=== PATIENT | male | born 1950 | race Caucasian/White ===

== ENCOUNTER 2022-03-19 11:22 | Outpatient (CLI) | payer MEDICARE, SELFPAY ==
--- NOTE | 2022-03-19 | ECG_ITS ---
Measurements Intervals [place] Rate: 62 P: 49 NV: 191 QRS: 34 QRSD: 107 T: 51 QT: 402 QTc: 409 Interpretive Statements SINUS RHYTHM EARLY PRECORDIAL R/S TRANSITION BASELINE WANDER- I, II, AVR, AVL, AVF BORDERLINE ECG NO PREVIOUS ECG AVAILABLE FOR COMPARISON Electronically Signed On 03-19-2022 12:52:32 CDT by Akshat Hall D.O.
[2022-03-19 13:16] LABS: NT Pro B Type Natriuretic Pept 82 pg/mL (5-100)
== END 2022-03-19 11:23 | disposition home or self-care (01) ==
LOC: ANHLAB 12:03
DX: R06.02 Shortness of breath (principal); R00.2 Palpitations
CPT/HCPCS: 36415; 83880; 93005

== ENCOUNTER 2024-11-18 03:28 | Emergency (ER) | payer MEDICARE, SELFPAY ==
[2024-11-18] VITALS (7 sets, daily range): BP systolic 107–138; BP diastolic 51–68; PULSE 56–81; RESP 15–19; TEMP 36.6; O2SAT 97–98
--- NOTE | ~2024-11-18 | XR_ITS ---
Portable chest x-ray Comparison: 01/01/2018 Clinical History: Chest pain Findings: Right-sided Mediport present. Stable left perihilar density extending to the right lower l obe, suggestive of treated disease/post treatment change. There is no definite acute abnormality in t he right lung. Cardiomediastinal silhouette is stable. Multilevel vertebroplasty noted in the spine. Impression: No definite acute abnormality. Probable post radiation change/treated disease in the left perihilar region extending to left lower l obe. Reviewed, dictated and finalized at location M. Impression: No definite acute abnormality. Probable post radiation change/treated disease in the left perihilar region ext ending to left lower lobe.
--- NOTE | ~2024-11-18 | CT_ITS ---
Non-contrast Head CT History: Confusion Technique: Axial non-contrast imaging of the brain was performed. Dose reduction technique was used on this scan by utilizing automated exposure control and iterative reconstruction technique. The dose -length product (DLP) was 681.00 mGy-cm. Findings: There is no evidence of intracranial hemorrhage, mass lesion, or acute infarct. 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 Brain parenchyma otherwise intact. The татьяна tricles and subarachnoid spaces are normal in size. The calvarium appears normal. The visualized pa ranasal sinuses and mastoid air cells are clear. Impression: No acute abnormality seen. 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 Reviewed, dictated and finalized at location . Impression: No acute abnormality seen. Focal chronic infarct or other encephalomalacia in the superior right frontal l obe.
--- NOTE | ~2024-11-18 | CT_ITS ---
Clinical Indication: Chest pain, lung cancer CT Scan of the Chest with Contrast: Technique: Contiguous sections were acquired throughout the chest after intravenous administration of 100 cc of Omnipaque 350. Dose reduction technique was used on this scan by utilizing automated expos ure control and iterative reconstruction technique. The dose-length product (DLP) was 360.40 mGy-cm. Findings: There is no evidence of any significant mediastinal, hilar or axillary lymphadenopathy. There is no f illing defect in the pulmonary arterial tree to suggest pulmonary embolus. There is no evidence of ao rtic dissection or aneurysm. There is minimal loculated left pleural effusion. No right pleural effusion. No pericardial effusion. There is somewhat bandlike consolidation in the medial left lung scanning from the upper lobes to the hilum into the medial portion lower lobe, with associated bronchiectatic change in the perihilar reg ion. This is most compatible with radiation change. There is biapical chronic interstitial change and mild emphysema. No suspicious pulmonary nodules identified. Images through the upper abdomen reveal no abnormalities. Prior vertebroplasty at T5, T6, T7, and L1. There is mild compression deformity of T12. Impression: No evidence of pulmonary embolus, aortic dissection, or aortic aneurysm. Post radiation changes in the central left lung, as detailed above. Biapical chronic interstitial change and mild emphysema. Minimal loculated left pleural effusion. Multilevel vertebroplasty in the spine, as detailed above. Additional mild T12 compression fracture. Reviewed, dictated and finalized at [facility]. Impression: No evidence of pulmonary embolus, aortic dissection, or aortic aneurysm. Post radiation changes in the central left lung, as detailed above. Biapical chronic interstitial change and mild emphysema. Minimal loculated left pleural effusion. Multilevel vertebroplasty in the spine, as detailed above. Additional mild T12 compression fracture.
--- NOTE | 2024-11-18 03:31 | ECG_ITS ---
Test Date: 2024-11-18 03:36:08 Measurements Intervals [place] Rate: 71 P: 60 ID: [id number] QRS: 15 QRSD: 105 T: 52 QT: 379 QTc: 414 Interpretive Statements SINUS RHYTHM LEFT ATRIAL ENLARGEMENT [-0.15mV P-WAVE IN V1/V2] No previous ECG available for comparison Electronically Signed On 11-18-2024 15:59:58 CDT by Skip Mays M.D.
--- OUTSIDE RECORDS SUMMARY | 2024-11-18 03:33 | XMS_ITS | Continuity of Care Document ---
Author Organization [facility] Address [id number] [place] [address] [address] [place] [address] Phone Care Team Providers Care Gift Officer Name Role Phone Tolentino OD, Joaquin Unavailable Unavailable Advance Directives Directive Yes / No Effective Date File Name No Information Encounters Encounter Description Practice Location Reason(s) For Visit Diagnoses Date Provider Providers Copied on Encounter [facility], [address], [place], [place], [id number], [place] tel:[phone] [facility] No Information Patric-2 [phone] Tolentino OD Joaquin. [address] , [address], [place], [address], [place]. tel:[phone] Family History Family Member Type Diagnosis Age At Onset No Information Payers Payer name Insurance type Covered libertarian ID Authoriza tion(s) No Information Social History Type Description Quantity Date Captured Comments Sex Male Smoking Status No Information Chief Complaint And Reason For Visit No Information Reason For Referral Reason For Referral No Information History Of Present Illness Encounter Date Complaint History Of Prese nt Illness No Information Functional Status Date Functional Assessmen t No Information Instructions Date Instruction Additional Infor mation No Information Assessments Type Assessment Date No Information Patient Care Teams Name Effective Dates (start - stop) Status Members No Information
--- OUTSIDE RECORDS SUMMARY | 2024-11-18 03:33 | XMS_ITS | Continuity of Care Document ---
Author Organization [facility] - Main Address [address] [address] Insurance Providers Payer Plan Claims Address Claims Phone Policy Number Group Number Relation Employer Guarantor Name Guarantor Guarantor Address Guarantor Phone [employer] [address], [place] [address] tel:[phone] Self Don Logan [address] [place] [id number] [employer] [address], [place] [address] tel:[phone] Self Don Logan [address] [place] [id number] [employer] [address], [place] [address] tel:[phone] Self Don Logan [address] [place] [id number] Problems Unknown Problems Results No Results Allergies, adverse reactions, alerts No known allergies and adverse reactions Medications No administered medications reported Vital Signs No vital signs reported Social History No smoking Hx information available
--- OUTSIDE RECORDS SUMMARY | 2024-11-18 03:33 | XMS_ITS | Referral Summary ---
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 (Primary Dx); Major depressive disorder, recurrent episode, in partial remission; ADHD (attention deficit hyperactivity disorder), inattentive type; Memory loss 10/04/2024 Documentation [facility] Department of Psychiatry [address] [facility] [address] [place] [phone] Ene Villela, MACKENZIE 09/29/24 no show (09/29/24 no show letter sent both by [facility] and [employer] (1st offense return)) 09/22/2024 10:30 AM CDT Telemedicine [facility] [address] [facility] 6th Floor [address] [place] [address] Sarahi Davidson NP Memory impairment (Primary Dx) 09/06/2024 10:30 AM MANAGER OF FINANCE Telemedicine [facility] Department of Psychiatry [address] [facility] [address] [place] [phone] Shannan Munoz NP CA (generalized anxiety disorder) (Primary Dx); Major depressive disorder, recurrent episode, in partial remission 09/03/2024 Results Follow-Up [facility] Gastroenterology [address] [facility] 12th [place] [address] [place] [address] Magaly Hamilton MD 09/02/2024 11:20 AM MANAGER OF FINANCE Imaging Exam [facility] Ophthalmology [address] [facility] 6th [place] [phone] 09/02/2024 10:45 AM MANAGER OF FINANCE Office Visit [facility] Ophthalmology [address] [facility] 6th [facility] [place] [phone] Danisha Barnard, DAMARIS Visual disturbance (Primary Dx); Visual disturbance, subjective; Vertical strabismus of right eye; Vitreous syneresis of both eyes; Pseudophakia of both eyes 2024 9:17 AM MANAGER OF FINANCE Anesthesia Event [facility] Digestive [facility] [place] [address] [facility] [address] [place] [address] Sierra Babin MD Bisch, Abby Michelle, HOLA 2024 9:15 AM MANAGER OF FINANCE - 2024 10:15 AM MANAGER OF FINANCE Surgery [facility] Disease [address] [place] [address] Magaly Hamilton MD COLON REMOVAL SNARE 2024 7:49 AM MANAGER OF FINANCE - 2024 10:48 AM MANAGER OF FINANCE Hospital Encounter [facility] [address] [address] Magaly Hamilton MD Screening for colon cancer; Polyp of colon Discharge Disposition: Discharge to home or self care 08/24/2024 10:30 AM MANAGER OF FINANCE Office Visit [facility] Primary Care at [address] [phone] Brandi Arevalo NP Chest pain, unspecified type (Primary Dx); Hypothyroidism, unspecified type; Mild episode of recurrent major depressive disorder; Anxiety; Centrilobular emphysema (HCC); Pure hypercholesterolemia; 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) (HCC); 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) 08/24/2024 9:45 AM MANAGER OF FINANCE - 08/24/2024 11:59 PM MANAGER OF FINANCE Hospital Encounter [address] [address] Pure hypercholesterolemia; Hypothyroidism, unspecified type Discharge Disposition: Discharge to home or self care 08/24/2024 9:45 AM MANAGER OF FINANCE Lab [facility] Outpatient Lab at [address] [phone] Hypothyroidism (Primary Dx) 08/24/2024 Results Follow-Up [facility] Primary Care at [address] [phone] Brandi Arevalo NP from Last 3 Months Immunizations Immunization Administration Dates Next Due COVID-19 mRNA (Xenome) 0.3 m L (30 mcg) vaccine (12 years and up) 10/02/2023 Influenza, Quad, Adjuvantate d, Intramuscular 04/05/2021 Influenza, Quadrivalent, Hig h Dose, Preservative Free, Intrr 04/05/2022,04/06/2020 Influenza, Quadrivalent, Spl it, Intramuscular 04/06/2018 Influenza, Quadrivalent, Spl it, Preservative Free, Intramuscular 04/22/2014 Influenza, Trivalent, High D ose, Split, Preservative Free, Intramuscular 04/20/2024 Influenza, Trivalent, Preser vative Free, Intramuscular 05/07/2017,05/07/2016,04/16/2016,04/27 Influenza, Unspecified 03/25/2023,2020,04/12/2019,04/03 Pfizer SARS-CoV-2 Monovalent Vaccination (12+ Yrs) PURPLE 02/21/2021,09/08/2020,08/11/2020 Pfizer SARS-CoV-2 Monovalent Vaccination (5-11 Yrs) 08/20/2021 Pfizer Sars-Cov-2 Bivalent V accination (12+ YRS) 04/20/2024,03/14/2022 Pneumococcal Conjugate PCV 13 04/19/2019 Pneumococcal Polysaccharide PPV23 10/02/2023, Tdap 04/12/2019 ZOSTER Recombinant 07/08/2019,04/19/2019 Surgical History Surgery Date Site/Laterality Comments US GUIDED LUNG BIOPSY 03/02/2016 N/A PROSTATECTOMY KYPHOPLASTY LUMBAR 12/19/2017 N/A KYPHOPLASTY THORACIC 09/15/2018 N/A KYPHOPLASTY THORACIC 03/05/2019 N/A CATARACT EXTRACTION PROSTATE SURGERY UPPER GASTROINTESTINAL ENDOSCOPY COLONOSCOPY WISDOM TOOTH EXTRACTION IMPLANT PORTACATH PLACEMENT KYPHOPLASTY THORACIC 03/15/2024 N/A Medical History Medical History Date Comments Blood clot associated with v ein wall inflammation 2015 bilateral leg SOB (shortness of breath) on exertion Depression Cancer (HCC) lung and brain a nd prostate Thyroid disease Secondary malignant neoplasm of brain (HCC) 02/20/2016 Primary adenocarcinoma of up per lobe of left lung (HCC) 12/02/2017 Personal history of radiatio n therapy 03/02/2018 Anxiety Anemia Colon polyp GERD (gastroesophageal reflu x disease) history, not current Dysphagia Hypothyroidism Pseudophakia of both eyes Hard to intubate Awareness under anesthesia Sleep apnea Hyperlipidemia Emphysema of lung (HCC) History of transfusion 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 Flor HL (hearing loss) Dizziness Tinnitus TMJ dysfunction Hypertension Had but it is mosttl y over since 2017 Alcohol abuse Over 30 years ago Osteoporosis Cataract Removed in 2003 Heart disease I have some notation s on my last ct about my aorta Nausea 03/30/2024 Suicidal ideation 08/14/2021 Diverticulosis 11/02/2020 Family History Medical History Relation Name Comments Heart disease Brother Alcohol abuse Father Irving Diabetes Father Irving Heart disease Father Irving Heart failure Father Irving Obesity Father Irving Prostate cancer Maternal Grandfather Breast cancer Mother Berenice Depression Mother Berenice Drug abuse Mother Berenice overdose Cancer Sister Robert Endometrial cancer Sister Robert Broken bones Neg Hx Colon cancer Neg Hx Hip fracture Neg Hx Osteoporosis Neg Hx Scoliosis Neg Hx Relation Name Status Comments Brother Father Irving Maternal Grandfather Mother Berenice Sister Robert Social History Tobacco Use Types Packs/Day Years Used Date Smoking Tobacco: Former Cigarettes 3 30 1 966 - 1995 Smokeless Tobacco: Never Tobacco Cessation:Counseling Given: Not Answered Alcohol Use Standard Drinks/Week Comments Yes 3 (1 standard drink = 0.6 oz pur e alcohol) AUDIT-C Answer Date Recorded Q1: How often do you have a drink containing alcohol? Never 2024 Q2: How many drinks containi ng alcohol do you have on a typical day when you are drinking? Patient does not drink Q3: How often do you have si x or more drinks on one occasion? Never 2024 PHQ-2 Answer Date Recorded PHQ-2 Total Score (If total score is 3 or more points, staff should administer the PHQ-9) 4 05/13/2024 Hunger Vital Sign Answer Date Recorded Within the past 12 months, y ou worried that your food would run out before you got the money to buy more. Never true 06/23/20 24 Within the past 12 months, t he food you bought just didn't last and you didn't have money to get more. Never true 06/23/2024 PHQ-9 Answer Date Recorded PHQ-9 Total Score 11 05/13/2024 Personal Safety Answer Date Recorded Have you ever been in or are you currently in a harmful physical or emotional relationship or is someone making you feel afraid or unsafe? Denies 06/23/2024 Sex and Gender Information Value Date Recorded Sex Assigned at Not on file Legal Sex Male 12:11 PM MANAGER OF FINANCE Gender Identity Male 11/21/2022 6:52 PM CDT Sexual Orientation Not on file Obstetrics History Last Filed Vital Signs Vital Sign Reading Time Taken Comments Blood Pressure 118/62 11/16/2024 11:56 AM CDT Pulse 57 11/16/2024 11:56 AM CDT Temperature 36.7 C (98 F) 10/11/2024 1:33 PM CDT Respiratory Rate 22 2024 10:35 AM MANAGER OF FINANCE Oxygen Saturation 95% 11/09/2024 11:11 AM CDT Inhaled Oxygen Concentration - - Weight 86.2 kg (190 lb) 11/16/2024 11:56 AM CDT Height 182.9 cm (6') 11/16/2024 11:56 AM CDT Body Mass Index 25.77 11/16/2024 11:56 AM CDT Plan of Treatment Scheduled Procedures Name Priority Associated Diagnoses Date/Ti me COLONOSCOPY Open Access Colon cancer screening COLONOSCOPY Epigastric pain ESOPHAGOGASTRODUODENOSCOPY History of abdominal pain Health Maintenance Due Date Last Done Comments Hepatitis B Screening 1968 Covid-19 Vaccine (2023-2 5 season) 2024 04/20/2024, 10/02/2023, 03/14/2022, Additional history exists Well Visit 65+ 10/26/2024 10/27/2023, 09/2022, 08/21/2021, Additional history exists Depression Screening 05/13/2025 05/13/2024, 05/13/2024, 10/27/2023, Additional history exists Fall Risk Assessment 05/13/2025 05/13/2024, 03/15/2024, 10/27/2023, Additional history exists Colon Cancer Screening-Colonoscopy 2029 2024, 12/23/2023, 12/19/2020, Additional history exists DTaP/Tdap/Td Vaccine (3 - Td or Tdap) 10/05/2034 10/05/2024, 04/12/2019 Hepatitis C Screening Completed 06/26/2017 Zoster Vaccine Completed 07/08/2019, 04/19/2019 Prostate Cancer Screening-PSA Discontinued , 08/21/2021, 05/03/2019 Pneumococcal vaccine 65+ Completed 024, 04/19/2019, 06/02/2018 Abdominal Aortic Aneurysm (A AA) Screen Completed 04/15/2024, 07/12/2022, 08/14/2021, Additional history exists Influenza Vaccine Completed 04/20/2024, , 04/05/2022, Additional history exists Colon Cancer Screening-CT Colonography Discontinued 2024, 12/23/2023, 12/19/2020, Additional history exists Colon Cancer Screening-DNA Stool Discontinued 2024, 12/23/2023, 12/19/2020, Additional history exists Colon Cancer Screening-FIT Discontinued 08/25, 12/23/2023, 12/19/2020, Additional history exists Colon Cancer Screening-Sigmoidoscopy Discontinued 2024, 12/23/2023, 12/19/2020, Additional history exists Medical Devices Implanted Type Area Activities Specialist Device Identifier Shelf Expiration Date Model / Serial / Lot Vascular Access Power Port Chest Wall Auctions by [employer] 2002 Stabilit First Kit Fracture - [id number] Implanted:Qty: 1 on 12/19/2017 at [facility] [employer] 10/05/20192002 / / [id number] Auctions by Wallace [id number] - [id number] Implanted:Qty: 1 on 09/15/2018 at [facility] [employer] 06/05/2020 [id number] / / [id number] Procedures Procedure Name Priority Date/Time Associated Diagnosis Comments SANTOS VISUAL FIELD - OU - BOTH EYES Routine 09/02/2024 11:40 AM MANAGER OF FINANCE Visual disturbance Visual disturbance, subjective SURGICAL PATHOLOGY Routine 2024 9:53 AM MANAGER OF FINANCE Screening for colon cancer Polyp of colon COLONOSCOPY 2024 9:34 AM MANAGER OF FINANCE EGD 2024 9:23 AM MANAGER OF FINANCE ESOPHAGOGASTRODUODENOSCOPY 08/25 9:18 AM MANAGER OF FINANCE Screening for colon cancer Polyp of colon COLON REMOVAL SNARE 2024 9:18 AM MANAGER OF FINANCE Screening for colon cancer Polyp of colon ECG 12-LEAD Routine 08/24/2024 3:31 PM MANAGER OF FINANCE Chest pain, unspecified type EGFR Routine 08/24/2024 9:45 AM MANAGER OF FINANCE Pure hypercholesterolemia DIFFERENTIAL AUTO Routine 08/24/2024 9:45 AM MANAGER OF FINANCE Pure hypercholesterolemia THYROID FUNCTION CASCADE Routine 025 9:45 AM MANAGER OF FINANCE Hypothyroidism, unspecified type LIPID PANEL Routine 08/24/2024 9:45 AM MANAGER OF FINANCE Pure hypercholesterolemia CBC WITH AUTO DIFFERENTIAL Routine 08/24 9:45 AM MANAGER OF FINANCE Pure hypercholesterolemia COMPREHENSIVE METABOLIC PANEL Routine 9:45 AM MANAGER OF FINANCE Pure hypercholesterolemia CT CHEST ABDOMEN W CONTRAST Schedule Routine, Read Routine (OP Routine) 04/15/2024 4:12 PM CDT 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) 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) (HCC) PSA SCREEN Routine 10/07/2022 12:46 PM CDT Preventative health care HEPATITIS C ANTIBODY STAT 06/26/2017 7:23 AM MANAGER OF FINANCE
--- OUTSIDE RECORDS SUMMARY | 2024-11-18 03:34 | XMS_ITS ---
Author Organization [facility] Address [address] [place] [address] Care Team Providers Care Fruit Cutter Name Role Phone Michelle Gutierrez NP Unavailable Damaris Felix MD Unavailable Kamari Arora NP Unavailable Katie Roach Unavailable [phone] Brandi Arevalo NP Primary Care Provider Shannan Munoz NP Unavailable Active Problems Problem Noted Date Diagnosed Date Vitreous syneresis of both eyes 09/05/2024 Assessment & Plan (09/05/2024 1:03 PM HEALTHCARE ACCOUNT MANAGER): No retinal detachment (RD), pt ed. Monitor. S/sx retinal detachment (RD) reviewed. Chest pain 08/24/2024 Assessment & Plan (08/24/2024 3:33 PM HEALTHCARE ACCOUNT MANAGER): Attributed to anxiety. EKG shows NSR, no [...] 01/13/2023 Assessment & Plan (08/24/2024 8:54 AM HEALTHCARE ACCOUNT MANAGER): Recheck labs Pharmacotherapy as ordered. Continue atorvastatin Assessment & Plan (05/13/2024 3:28 PM HEALTHCARE ACCOUNT MANAGER): Lipid abnormalities are stable. Pharmacotherapy as ordered. [...] 06/19/2022 Assessment & Plan (09/05/2024 1:03 PM HEALTHCARE ACCOUNT MANAGER): Patient was educated on the intraocular lens (IOL) status. Follow. Assessment & Plan (05/20/2024 4:24 PM HEALTHCARE ACCOUNT MANAGER): Declined DFE Release updated glasses Rx Assessment & Plan (06/18/2023 1:56 PM HEALTHCARE ACCOUNT MANAGER): Central, clear, monitor Assessment & Plan (06/19/2022 3:36 PM HEALTHCARE ACCOUNT MANAGER): Central, clear. Monitor. Vertical strabismus of right eye 06/19/2022 Assessment & Plan (09/05/2024 1:03 PM HEALTHCARE ACCOUNT MANAGER): Slight adjustment to prism - release updated Rx Assessment & Plan (05/20/2024 4:24 PM HEALTHCARE ACCOUNT MANAGER): Slight change to prism Rx Assessment & Plan (06/18/2023 1:55 PM HEALTHCARE ACCOUNT MANAGER): Largely stable RHT that is comitant, 1pd increase improves subjective symptoms in exam. Will update specs as desired. Due to mild eyestrain/pain and feeling around left scientologist, will order ESR/CRP. Low likelihood for GCA based off symptoms, and no swelling of discs. If normal, will update specs and call/RTC with any new/worsening or persistent symptoms Assessment & Plan (06/19/2022 3:41 PM HEALTHCARE ACCOUNT MANAGER): Largely stable findings over current spec Rx [...] disease) Assessment & Plan (08/24/2024 8:55 AM HEALTHCARE ACCOUNT MANAGER): Managed by pulm. Continue albuterol hfa, anoro [...] 04/20/2020 Assessment & Plan (08/21/2021 8:25 PM HEALTHCARE ACCOUNT MANAGER): -present for 18 months after noise exposure [...] Staging:Clinical:Stage IV(pM1c) - Signed by Michelle Gutierrez WEATHER ANALYST on 06/03/2018 Assessment & Plan (08/24/2024 8:52 AM HEALTHCARE ACCOUNT MANAGER): Stable. On surveillance. Continues to follow-up with oncology every 6 months Assessment & Plan (05/13/2024 3:24 PM HEALTHCARE ACCOUNT MANAGER): Stable. On surveillance. Continues to follow-up with oncology every 6 months Anxiety 07/23/2016 Assessment & Plan (08/24/2024 8:57 AM HEALTHCARE ACCOUNT MANAGER): Managed by Psych. Mood is well controlled. Continue lexapro remeron, Assessment & Plan (04/06/2024 11:12 AM [...] needed. Assessment & Plan (08/14/2021 7:30 PM HEALTHCARE ACCOUNT MANAGER): At home, he is on Klonopin 0.5 mg daily as needed. - Resume home meds MDD (major depressive disorder) 07/23/2016 Assessment & Plan (08/24/2024 8:57 AM HEALTHCARE ACCOUNT MANAGER): Managed by Psych. Mood is well controlled. [...] psychiatry. Assessment & Plan (08/15/2021 4:14 PM HEALTHCARE ACCOUNT MANAGER): Will resume home meds, trazodone and Mirtazapine. Patient endorsed having suicidal idea for one day due to severe headache [facility] inpatient recommedned by primary oncology: consulted 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) 02/20/2016 Assessment & Plan (08/24/2024 8:52 AM HEALTHCARE ACCOUNT MANAGER): Stable, on surveillance. Last scan August 2024 Assessment & Plan (05/13/2024 3:24 PM HEALTHCARE ACCOUNT MANAGER): Stable, on surveillance Assessment & Plan (08/14/2021 7:31 PM HEALTHCARE ACCOUNT MANAGER): S/P gamma knife radiosurgery in 2015, has had sever MRI with no new lesions. - Medical oncology consult Sleep apnea 03/04/2013 Malignant neoplasm of prostate 03/04/2013 Hypothyroidism 03/04/2013 Assessment & Plan (08/24/2024 8:56 AM HEALTHCARE ACCOUNT MANAGER): Euthyroid. Continue levothyroxine. Recheck labs Assessment & Plan (05/13/2024 3:24 PM HEALTHCARE ACCOUNT MANAGER): Euthyroid. Continue levothyroxine. Follow-up 3-4 months for physical Assessment & Plan (10/27/2023 10:21 AM CDT): Stable well controlled on current regimen, will send in refills as needed Assessment & Plan (01/14/2023 8:39 AM CDT): Stable well controlled on current regimen, will send in refills as needed Assessment & Plan (08/21/2021 8:24 PM HEALTHCARE ACCOUNT MANAGER): - will check TSH Assessment & Plan (08/14/2021 7:30 PM HEALTHCARE ACCOUNT MANAGER): Resumed home Synthroid 75 mcg. 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 Other Current Plans Zoledronic Acid (Reclast) Infusion & Venous Sampling from [facility]* Plan Start Date: 06/23/2024 Plan Provider:Eleni Ramon MD Linked Problems Compression fracture of thor acic vertebra with routine healing, unspecified thoracic vertebral level, subsequent encounterOsteoporosis, unspecified osteoporosis type, unspecified pathological fracture presence Treatment Medications No medications scheduled. Past Treatment and Therapy Plans No past plan information found. Radiation Treatments * Course C2 L HILUM 2017 07/02/2017 - 07/15/2017 Treatment Period Energy Fraction Dose Fractions Total Dose Plans Planned LT LUNG 07/02/2017 - 07/15/2017 300 10 / 3,000 Reference Points Delivered LT HILUM_DPV 07/02/2017 - 07/15/2017 3,000 Lifetime Dose Tracking * Chemical Lifetime Dose Automatic Entry Manual Entr y Fluoro Time 10.038 minutes 10.038 minutes 0 minutes Air kerma at the reference point (Ka,r) 94.24 mGy 9 4.24 mGy 0 mGy DLP 11,043 mGycm 11,043 mGycm 0 mGycm Resolved Problems Problem Noted Date Diagnosed Date [...] 08/14/2021 Assessment & Plan (08/17/2021 10:43 AM HEALTHCARE ACCOUNT MANAGER): Headache etiology is unclear. Goal of admission [...] 05/13/2024 Assessment & Plan (06/14/2021 8:46 AM HEALTHCARE ACCOUNT MANAGER): There is a 1 to 2 mm [...] 11/24/201801/2024 Assessment & Plan (08/14/2021 7:33 PM HEALTHCARE ACCOUNT MANAGER): CT chest in the ED showed stable [...]
--- OUTSIDE RECORDS SUMMARY | 2024-11-18 03:34 | XMS_ITS | Encounter Summary ---
Author Organization [facility] Healthcare Address [address] [place] [address] Care Team Providers Care Paving Foreman Name Role Phone Michelle Gutierrez BROKE BEATER Unavailable Damaris Felix MD Unavailable Martha Winston MD Primary Care Provider [phone] Kamari Arora NP Unavailable Katie Roach Unavailable [phone] Nishant Alanis MD Unavailable Joel Boo MD Primary Care Provider + Brandi Arevalo NP Primary Care Provider [phone] Shannan Munoz NP Unavailable Encounter Details Date Type Department Care Team (Late st Contact Info) Description 12/26/2020 Telephone [facility] Radiology [address] [place] [address] Martha Winston MD [address] [facility] DR Rachel GARCIA [address] [place] [id number] Social History Tobacco Use Types Packs/Day Years Used Date Smoking Tobacco: Former Cigarettes 3 30 1 966 - 1995 Smokeless Tobacco: Never Alcohol Use Standard Drinks/Week Comments Yes 3 (1 standard drink = 0.6 oz pur e alcohol) AUDIT-C Answer Date Recorded Q1: How often do you have a drink containing alc ohol? 2-3 times a week 12/19/2020 Q2: How many drinks containi ng alcohol do you have on a typical day when you are drinking? 1 or 2 12/19/2020 Q3: How often do you have si x or more drinks on one occasion? Never 12/19/2020 PHQ-2 Answer Date Recorded PHQ-2 Total Score (If total score is 3 or more points, staff should administer the PHQ-9) 2 04/20/2020 Sex and Gender Information Value Date Recorded Sex Assigned at Not on file Legal Sex Male 12:11 PM COOKER SULFATE Gender Identity Male 11/21/2022 6:52 PM CDT Sexual Orientation Not on file documented as of this encounter Plan of Treatment Scheduled Procedures Name Priority Associated Diagnoses Date/Ti ak COLONOSCOPY Open Access Colon cancer screening COLONOSCOPY Epigastric pain ESOPHAGOGASTRODUODENOSCOPY History of abdominal pain documented as of this encounter Visit Diagnoses Not on filedocumented in this encounter Care Teams Paving Foreman Relationship Specialty Start Date End Date Martha Winston MD [address] [place], [place] [address]NIKKI GARCIA [address] [place] [address] PCP - General Internal Medicine 06/19/20 11/03/22 Joel Boo MD [address] [place], [place] [address]NIKKI GARCIA [address] [place] [address] PCP - General Internal Medicine 11/04/22 05/12/24 Brandi rAevalo NP [address] [place], [place] [address]NIKKI GARCIA [address] [place] [address] PCP - General Family Medicine 05/13/24 Michelle Gutierrez NP Nurse Practitioner Radiation Oncology 12/23/17 Damaris eFlix MD Referring Physician Medical Oncology 12/23/17 Kamari Arora NP [facility]0 [facility] [address] Ramos RADHA [address] [place] [address] Nurse Practitioner Neurosurgery 08/18/20 Katie Roach Au.D. [address] [facility] [address] [place] [address] Welding Pantograph Operator Audiology 08/18/20 Nishant Alanis MD 49[address] [facility] [address] [place] [address] Consulting Physician Otolaryngology 08/18/20 08/18/24 Shannan Munoz NP 1 [facility] [address] [place] [address] Nurse Practitioner Nurse Practitioner 05/13/24 documented as of this encounter
--- OUTSIDE RECORDS SUMMARY | 2024-11-18 03:34 | XMS_ITS | Encounter Summary ---
Author Organization [facility] Address [address] [place] [address] Care Team Providers Care Chorus Dancer Name Role Phone Ricky Rodriguez MD Primary Care Provider Michelle Gutierrez SR VICE PRESIDENT Unavailable Damaris Felix MD Unavailable [facility], Ed Orellana MD Primary Care P rovider Ricky Rodriguez MD Primary Care Provider Martha Winston MD Primary Care Provider [phone] Martha Winston MD Primary Care Provider [phone] Martha Winston MD Primary Care Provider [phone] Kamari Arora SR VICE PRESIDENT Unavailable Katie Roach Unavailable [phone] Nishant Alanis MD Unavailable [phone] Joel Boo MD Primary Care Provider + Brandi Arevalo NP Primary Care Provider [phone] Shannan Munoz SR VICE PRESIDENT Unavailable Encounter Details Date Type Department Care Team (Late st Contact Info) Description 03/15/2019 Telephone [facility] Advanced Medicine Radiation Oncology [address] [place] [address] Maci Mccormick RN Social History Tobacco Use Types Packs/Day Years Used Date Smoking Tobacco: Former Cigarettes Smokeless Tobacco: Never Alcohol Use Standard Drinks/Week Comments Yes 3 (1 standard drink = 0.6 oz pur e alcohol) Sex and Gender Information Value Date Recorded Sex Assigned at Not on file 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, Ed Orellana MD [address] [place] [address] PCP - General 08/16/19 02/07/20 Ricky Rodriguez MD [address] [facility] [address] [place] [address] PCP - General Internal Medicine 02/08/20 02/10/20 Martha Winston MD [address] [place], [place] [address]NIKKI GARCIA [address] [place] [address] PCP - General Internal Medicine 04/20/20 06/18/20 Martha Winston MD [address] [place] [address] ADY GARCIA [address] [place] [address] PCP - General Internal Medicine 02/11/20 04/19/20 Martha Winston MD [address] [place], [place] [address]NIKKI GARCIA [address] [place] [address] PCP - General Internal Medicine 06/19/20 11/03/22 Joel Boo MD [address] [place], [place] [address]NIKKI GARCIA [address] [place] [address] PCP - General Internal Medicine 11/04/22 05/12/24 Brandi Arevalo NP [address] [place], [place] [address]NIKKI GARCIA [address] [place] [address] PCP - General Family Medicine 05/13/24 Michelle Gutierrez, LETICIA Nurse Practitioner Radiation Oncology 12/23/17 Damaris Felix MD Referring Physician Medical Oncology 12/23/17 Kamari Arora NP [address] [place] [address] DR Rachel GARCIA [address] [place] [address] Nurse Practitioner Neurosurgery 08/18/20 Katie Roach Au.D. [address] [address] Blindstitch Machine Operator Audiology 08/18/20 Nishant Alanis MD [address] [facility] [address] [place] [address] Consulting Physician Otolaryngology 08/18/20 08/18/24 Shannan Munoz NP [address] [place] [address] [place] [address] Nurse Practitioner Nurse Practitioner 05/13/24 documented as of this encounter
--- OUTSIDE RECORDS SUMMARY | 2024-11-18 03:34 | XMS_ITS | Encounter Summary ---
Author Organization [facility] Healthcare Address [address] [place] [address] Care Team Providers Care Pool Player Name Role Phone Michelle Gutierrez NP Unavailable Damaris Felix MD Unavailable Martha Winston MD Primary Care Provider [phone] Martha Winston MD Primary Care Provider [phone] Martha Winston MD Primary Care Provider [phone] Kamari Arora NP Unavailable Katie Roach Unavailable [phone] Nishant Alanis MD Unavailable [phone] Joel Boo MD Primary Care Provider + Brandi Arevalo NP Primary Care Provider Shannan Munoz NP Unavailable Encounter Details Date Type Department Care Team (Late st Contact Info) Description 02/16/2020 Telephone [facility]iology [facility] [address] [place] [address] Kamari Arora NP [address] [address] Social History Tobacco Use Types Packs/Day Years Used Date Smoking Tobacco: Former Cigarettes 3 30 1 966 - 1995 Smokeless Tobacco: Never Alcohol Use Standard Drinks/Week Comments Yes 3 (1 standard drink = 0.6 oz pur e alcohol) AUDIT-C Answer Date Recorded Frequency of Alcohol Consumption 2-3 times a wee k 04/12/2019 Average Number of Drinks 1 or 2 019 Frequency of Binge Drinking Not on file 01/2019 PHQ-2 Answer Date Recorded PHQ-2 Score 0 04/12/2019 Sex and Gender Information Value Date Recorded Sex Assigned at Not on file 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 Gender Identity Male 11/21/2022 6:52 PM CDT Sexual Orientation Not on file documented as of this encounter Plan of Treatment Scheduled Procedures Name Priority Associated Diagnoses Date/Ti me COLONOSCOPY Open Access Colon cancer screening COLONOSCOPY Epigastric pain ESOPHAGOGASTRODUODENOSCOPY History of abdominal pain documented as of this encounter Visit Diagnoses Not on filedocumented in this encounter Care Teams Pool Player Relationship Specialty Start Date End Date Martha Winston MD [address] [place], [place] [address]SIVA GARCIA [address] [place] [address] PCP - General Internal Medicine 04/20/20 06/18/20 Martha Winston MD [address] [place], [place] [address]SIVA GARCIA [address] [place] [address] PCP - General Internal Medicine 02/11/20 04/19/20 Martha Winston MD [address] [place], [place] [address]ISVA GARCIA [address] [place] [address] PCP - General Internal Medicine 06/19/20 11/03/22 Joel Boo MD [address] [place], [place] [address]SIVA GARCIA [address] [place] [address] PCP - General Internal Medicine 11/04/22 05/12/24 Brandi Arevalo NP [facility] ANA GARCIA [address] [place] [address] PCP - General Family Medicine 05/13/24 Michelle Gutierrez, LETICIA Nurse Practitioner Radiation Oncology 12/23/17 Damaris Felix MD Referring Physician Medical Oncology 12/23/17 Kamari Arora NP [address] [place] [address] DR Ramos RADHA [address] [place] [address] Nurse Practitioner Neurosurgery 08/18/20 Katie Roach Au.D. 49[address] [facility] [address] [place] [address] Ceo Audiology 08/18/20 Nishant Alanis MD [address] [facility] [address] [place] [address] Consulting Physician Otolaryngology 08/18/20 08/18/24 Shannan Munoz NP 1 [facility] [address] [place] [address] Nurse Practitioner Nurse Practitioner 05/13/24 documented as of this encounter
--- OUTSIDE RECORDS SUMMARY | 2024-11-18 03:34 | XMS_ITS | Encounter Summary ---
Author Organization [facility] Address [address] [place] [address] Phone Care Team Providers Care Executive Secretary Name Role Phone Michelle Gutierrez WILDLIFE REFUGE SPECIALIST Unavailable Damaris Felix MD Unavailable Martha Winston MD Primary Care Provider [phone] Kamari Arora NP Unavailable Katie Roach Unavailable [phone] Nishant Alanis MD Unavailable Joel Boo MD Primary Care Provider + Brandi Arevalo NP Primary Care Provider Shannan Munoz NP Unavailable Encounter Details Date Type Department Care Team (Late st Contact Info) Description 08/15/2021 Ophth Exam [facility] Ophthalmology [address] [place] [address] 1[address] [place] [id number] María Trinh MD PhD [address] [place] [address] Social History Tobacco Use Types Packs/Day Years [...] PHQ-2 Answer Date Recorded PHQ-2 Total Score 2 06/14/2021 Sex and Gender Information Value Date Recorded Sex Assigned at Not on file Legal Sex Male 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 Gender Identity Male 11/21/2022 6:52 PM CDT Sexual Orientation Not on file documented as of this encounter Plan of Treatment Scheduled Procedures Name Priority Associated Diagnoses Date/Ti co COLONOSCOPY Open Access Colon cancer screening COLONOSCOPY Epigastric pain ESOPHAGOGASTRODUODENOSCOPY History of abdominal pain documented as of this encounter Visit Diagnoses Not on filedocumented in this encounter Eye Exam Visual Acuity Right eye Left eye Near cc 20/20 20/20 Correction: Glasses Tonometry (Tonopen, 10:31 AM) Right eye Left eye Pressure 17 16 Pupils Dark Light Shape React APD Right eye 1.5 1 Round Brisk None Left eye 1.5 1 Round Brisk None Visual Yarbrough Right eye Left eye Full Full Extraocular Movement Right eye Left eye Full Full 3 prism diopters of R hypertropia in primary Neuro/Psych Mood/Affect: Normal Color Right eye Left eye Ishihara 06/17 06/17 External Exam Right eye Left eye External Normal Normal Slit Lamp Exam Right eye Left eye Lids/Lashes Normal, no ptosis Normal, no pto sis Conjunctiva/Sclera White and quiet White and lissette et Cornea Clear Clear Anterior Chamber Deep and quiet Deep and quiet Iris Round and reactive Round and wally ctive Lens PCIOL PCIOL Vitreous Normal Normal Fundus Exam Right eye Left eye Disc anomalous, tilted, n o edema, large PPA vs staphyloma no edema, large PPA vs staphyloma C/D Ratio 0.1 0.1 Macula Normal Normal Vessels Normal Normal Periphery Myopic fundus, few p igmentary changes peripherally Myopic fundus, few pigmentary changes peripherally Strabismus Exam Method: alternate cover Primary gaze: RHT 3 Right eye Left eye Up gaze 0 0 0 0 0 0 Right/left gaze 0 -- 0 0 -- 0 Down gaze 0 0 0 0 0 0 No fatigue with prolonged upgaze Care Teams Executive Secretary Relationship Specialty Start Date End Date Martha Winston MD [address] [place] [address] DR Rachel GARCIA [address] [place] [address] PCP - General Internal Medicine 06/19/20 11/03/22 Joel Boo MD [address] [place], [place] [address]NIKKI GARCIA [address] [place] [address] PCP - General Internal Medicine 11/04/22 05/12/24 Brandi Arevalo NP [address] [place], [place] [address]NIKKI GARCIA [address] [place] [address] PCP - General Family Medicine 05/13/24 Michelle Gutierrez, LETICIA Nurse Practitioner Radiation Oncology 12/23/17 Damaris Felix MD Referring Physician Medical Oncology 12/23/17 Kamari Arora NP [address] [place], [place] [address]NIKKI GARCIA [address] [place] [address] Nurse Practitioner Neurosurgery 08/18/20 Katie Roach Au.D. [address] [address] Cd Mixer Helper Audiology 08/18/20 Nishant Alanis MD 4921 [facility] [address] [place] [address] Consulting Physician Otolaryngology 08/18/20 08/18/24 Shannan Munoz NP 1 [facility] [address] [place] [address] Nurse Practitioner Nurse Practitioner 05/13/24 documented as of this encounter
--- OUTSIDE RECORDS SUMMARY | 2024-11-18 03:34 | XMS_ITS | Encounter Summary ---
Author Organization [facility] Address [address] [place] [address] Phone Care Team Providers Care French Drawer Name Role Phone Michelle Gutierrez HANDS AND DIAL INSPECTOR Unavailable Damaris Felix MD Unavailable Kamari Arora NP Unavailable Katie Roach Unavailable [phone] Nishant Alanis MD Unavailable [phone] Joel Boo MD Primary Care Provider + Brandi Arevalo NP Primary Care Provider [phone] Shannan Munoz NP Unavailable Encounter Details Date Type Department Care Team (Latest Contact Info) Description 02/04/2023 Orders Only [facility] Scanning, Provider Social History Tobacco Use Types Packs/Day Years Used Date Smoking Tobacco: Former Cigarettes 3 30 1 966 - 1995 Smokeless Tobacco: Never Alcohol Use Standard Drinks/Week Comments Yes 3 (1 standard drink = 0.6 oz pur e alcohol) AUDIT-C Answer Date Recorded Q1: How often do you have a drink containing alc ohol? 2-3 times a week 10/10/2022 Q2: How many drinks containi ng alcohol do you have on a typical day when you are drinking? 1 or 2 10/10/2022 Q3: How often do you have si x or more drinks on one occasion? Never 10/10/2022 PHQ-2 Answer Date Recorded PHQ-2 Total Score (If total score is 3 or more points, staff should administer the PHQ-9) 6 01/12/2023 Personal Safety Answer Date Recorded Have you ever been in or are you currently in a harmful physical or emotional relationship or is someone making you feel afraid or unsafe? 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 Gender Identity Male 11/21/2022 6:52 PM CDT Sexual Orientation Not on file documented as of this encounter Plan of Treatment Scheduled Procedures Name Priority Associated Diagnoses Date/Ti me COLONOSCOPY Open Access Colon cancer screening COLONOSCOPY Epigastric pain ESOPHAGOGASTRODUODENOSCOPY History of abdominal pain documented as of this encounter Procedures Procedure Name Priority Date/Time Associated Diagnosis Comments SCAN - LABS 02/04/2023 documented in this encounter Results * SCAN - LABS (02/04/2023) Provider Scanning Edited Result - Final documented in this encounter Visit Diagnoses Not on filedocumented in this encounter Care Teams French Drawer Relationship Specialty Start Date End Date Joel Boo MD [address] [place] [address] [address] GARCIA [address] [place] [address] PCP - General Internal Medicine 11/04/22 05/12/24 Brandi Arevalo NP [address] [place] [address] [address]ARC[address] [place] [address] PCP - General Family Medicine 05/13/24 Michelle Gutierrez NP Nurse Practitioner Radiation Oncology 12/23/17 Damaris Felix MD Referring Physician Medical Oncology 12/23/17 Kamari Arora NP Nurse Practitioner Neurosurgery 08/18/20 Katie Roach Au.D. [address] [address] Case Advocate Audiology 08/18/20 Nishant Alanis MD [address] [address] Consulting Physician Otolaryngology 08/18/20 08/18/24 Shannan Munoz NP 1 [facility] [address] [place] [address] Nurse Practitioner Nurse Practitioner 05/13/24 documented as of this encounter
[2024-11-18 03:46] LABS: Basophils Absolute Auto 0.1 K/mm3 (0.0-0.1); Basophils Percent Auto 0.8 % (0.2-1.2); Eosinophils Absolute Auto 0.4 K/mm3 (0-0.3); Hematocrit 42.8 % (42.0-52.0); Hemoglobin 13.7 g/dL (14.0-18.0); Immature Granulocyte Absolute 0.03 K/mm3 (0.00-0.031); Immature Granulocyte Percent A 0.3 % (0-0.5); Lymphocytes Absolute Auto 4.82 K/mm3 (0.9-3.2); Lymphocytes Percent Auto 47.8 % (18.3-44.2); Mean Corpuscular Hemoglobin 29.7 pg (26-34); Mean Corpuscular Volume 92.6 fl (80-100); Mean Platelet Volume 10.8 fl (7.4-10.4); Monocytes Absolute Auto 0.8 K/mm3 (0.1-0.6); Monocytes Percent Auto 8.2 % (2.6-8.5); Neutrophils Absolute Auto 3.9 K/mm3 (1.3-6.7); Neutrophils Percent Auto 38.9 % (45.5-73.1); Platelet Count Result 214 k/mm3 (150-375); Red Blood Count 4.62 M/mm3 (4.6-6.20); White Blood Count 10.1 K/mm3 (4.5-10.0)
[2024-11-18 03:56] LABS: Alanine Aminotransferase 28 U/L (6-50); Albumin Level 4.6 g/dL (3.5-5.1); Alkaline Phosphatase 91 U/L (38-126); Anion Gap 13 mmol/L (4-12); Aspartate Amino Transferase 41 U/L (17-59); Bilirubin,Total 0.5 mg/dL (0.2-1.3); Blood Urea Nitrogen 22 mg/dL (9-20); Calcium 9.1 mg/dL (8.4-10.2); Carbon Dioxide 20 mmol/L (22-30); Chloride 105 mmol/L (98-107); Estimated CRCL calculation 73 ml/min; Estimated Glomerular Filt Rate > 60; Glucose 133 mg/dL (65-110); Lipase 134 U/L (23-300); Potassium 3.7 mmol/L (3.4-5.0); Sodium 138 mmol/L (137-145)
--- NOTE | 2024-11-18 03:59 | ED.GENADULT ---
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 Patient says that he got up to go to the restroom and when he stood up he felt dizzy/lightheaded. Inserted to feel heaviness in his chest palpitations and a feeling of overwhelming dread. Patient then drove himself to the hospital to be evaluated. His symptoms have improved although he is now complaining of confusion, shakiness and feeling that something is wrong. He denies fevers, productive cough, shortness of breath, nausea vomiting or diarrhea. No history of NM. no lower extremity the edema. Patient has had a Holter monitor for the last 2 weeks due to palpitations and a racing heartbeat. It was taken off yesterday. 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 Hospital Pharmacist is Dr. Perkins in the [facility] system. Patient had become irate and frustrated with the RN while she was asking him his screening questions because he could not remember what his medications were. <Alex Jaime MD - Last Filed: 11/18/24 06:20> Related Data Home medications: Home Medications Medication Instructions Recorded Confirmed Last Taken Type escitalopram oxalate 20 mg tablet mg 11/18/24 Unknown History levothyroxine 75 mcg tablet mcg 11/18/24 Unknown History metoprolol succinate 25 mg mg PO 11/18/24 Unknown History tablet,extended release 24 hr mirtazapine 30 mg tablet mg 11/18/24 Unknown History rosuvastatin 5 mg tablet mg 11/18/24 Unknown History umeclidinium 62.5 mcg-vilanterol inhalation 11/18/24 Unknown History 25 mcg/actuation powdr for inhalation (Anoro Ellipta) <Alex Jaime MD - Last Filed: 11/18/24 06:20> Allergies/adverse reactions: Allergies Allergy/AdvReac Type Severity Reaction Status Date / Time No Known Allergies Allergy Verified 11/18/24 03:31 <Alex Jaime MD - Last Filed: 11/18/24 06:20> [facility] Social History Social History: Social History Smoking status: Never smoker Alcohol intake: current <Alex Jaime MD - Last Filed: 11/18/24 06:20> Exam Narrative: APPEARANCE: Anxious appearing, hands are tremulous Head: atraumatic. EYES: EOMI, NOSE: Atraumatic NECK: Trachea midline RESPIRATORY: No increased rate of breathing clear to auscultation CARDIOVASCULAR: RRR, no peripheral edema ABDOMINAL: Non-distended soft nontender MUSCULOSKELETAl: No obvious deformities NEURO: Alert. Moving 4/4 extremities SKIN:: Warm, dry. Normal color PSYCHIATRIC: Anxious. <Alex Jaime MD - Last Filed: 11/18/24 06:20> Course Reevaluation(s) Reevaluation #1: I was to follow up on second trop; this is neg. Patient in NAD, nl VS, given return precautions and f/u instructions to his doctor. Pt and fam at bedside agreeable to plan. <Sena Shepard MD - Last Filed: 11/18/24 07:30> Vital Signs Vital signs: Vital Signs Temperature 97.8 F 11/18/24 03:39 Pulse Rate 81 11/18/24 03:39 Respiratory Rate 17 11/18/24 03:39 Blood Pressure 138/68 11/18/24 03:39 Pulse Oximetry 98 11/18/24 03:39 Oxygen Delivery Room Air 11/18/24 03:39 Temperature 97.8 F 11/18/24 03:39 Pulse Rate 59 L 11/18/24 07:19 Respiratory Rate 15 11/18/24 07:19 Blood Pressure 107/51 L 11/18/24 07:19 Pulse Oximetry 98 11/18/24 07:19 Oxygen Delivery Room Air 11/18/24 03:52 <Alex Jaime MD - Last Filed: 11/18/24 06:20> Vital Signs Temperature 97.8 F 11/18/24 03:39 Pulse Rate 81 11/18/24 03:39 Respiratory Rate 17 11/18/24 03:39 Blood Pressure 138/68 11/18/24 03:39 Pulse Oximetry 98 11/18/24 03:39 Oxygen Delivery Room Air 11/18/24 03:39 Temperature 97.8 F 11/18/24 03:39 Pulse Rate 59 L 11/18/24 07:19 Respiratory Rate 15 11/18/24 07:19 Blood Pressure 107/51 L 11/18/24 07:19 Pulse Oximetry 98 11/18/24 07:19 Oxygen Delivery Room Air 11/18/24 03:52 <Sena Shepard MD - Last Filed: 11/18/24 07:30> Medical Decision Making MDM Narrative Medical decision making narrative: -Course: This is a 74 year old male presenting with an episode of dizziness. On arrival patient was severely anxious and tremulous. Given 5 mg of Valium with significant improvement in his symptoms. Extensive Chest pain workup obtained due to his multiple medical comorbidities. Dimer elevated 0.[address] PE obtained. No acute findings. 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 Initial troponin undetectable. BNP 167. EKG mild ST depressions in V4 through 6. No previous EKGs available. CT brain unremarkable. On re-evaluation patient is resting comfortably in bed. He has been able to get up and ambulate to the restroom without difficulty. His vital signs are stable. His symptoms have all resolved. He is signed out to the oncoming physician pending repeat troponin and EKG. If those are negative patient can be discharged to follow-up with his primary care physician. -DDX includes but is not limited to: Anxiety, static hypertension, vertigo, ACS, pneumonia, PE, pneumothorax, dissection -Co-morbidities complicating care: History of lung cancer with metastasis to the brain treated with chemo and radiation, anxiety -Independent interpretation of studies: Independent EKG interpretation: Rhythm [sinus], Rate [71], Mcfarland -[normal], GA -[normal], QRS [narrow], QTC [normal], T waves -[negative for concerning inversions], ST Segments -mild depressions in V4 through 6 Final interpretations: Normal sinus rhythm with nonspecific ST changes <Alex Jaime MD - Last Filed: 11/18/24 06:20> Vital Signs Vital Signs: Vital Signs Temperature 97.8 F 11/18/24 03:39 Pulse Rate 81 11/18/24 03:39 Respiratory Rate 17 11/18/24 03:39 Blood Pressure 138/68 11/18/24 03:39 Pulse Oximetry 98 11/18/24 03:39 Oxygen Delivery Room Air 11/18/24 03:39 Temperature 97.8 F 11/18/24 03:39 Pulse Rate 59 L 11/18/24 07:19 Respiratory Rate 15 11/18/24 07:19 Blood Pressure 107/51 L 11/18/24 07:19 Pulse Oximetry 98 11/18/24 07:19 Oxygen Delivery Room Air 11/18/24 03:52 <Alex Jaime MD - Last Filed: 11/18/24 06:20> Vital Signs Temperature 97.8 F 11/18/24 03:39 Pulse Rate 81 11/18/24 03:39 Respiratory Rate 17 11/18/24 03:39 Blood Pressure 138/68 11/18/24 03:39 Pulse Oximetry 98 11/18/24 03:39 Oxygen Delivery Room Air 11/18/24 03:39 Temperature 97.8 F 11/18/24 03:39 Pulse Rate 59 L 11/18/24 07:19 Respiratory Rate 15 11/18/24 07:19 Blood Pressure 107/51 L 11/18/24 07:19 Pulse Oximetry 98 11/18/24 07:19 Oxygen Delivery Room Air 11/18/24 03:52 <Sena Shepard MD - Last Filed: 11/18/24 07:30> Lab Data Result diagrams: 11/18/24 03:40 11/18/24 03:40 <Alex Jaime MD - Last Filed: 11/18/24 06:20> Labs: Lab Results 11/18/24 11/18/24 11/18/24 Range/Units 03:40 03:40 03:44 WBC 10.1 H (4.5-10.0) K/mm3 RBC 4.62 (4.6-6.20) M/mm3 Hgb 13.7 L (14.0-18.0) g/dL Hct 42.8 (42.0-52.0) % MCV 92.6 (80-100) fl MCH 29.7 (26-34) pg MCHC 32.0 (32-36) g/dl RDW 14.0 (11.5-14.5) % Plt Count 214 (150-375) k/mm3 MPV 10.8 H (7.4-10.4) fl Immature Gran % (Auto) 0.3 (0-0.5) % Neut % (Auto) 38.9 L (45.5-73.1) % Lymph % (Auto) 47.8 H (18.3-44.2) % [place] % (Auto) 8.2 (2.6-8.5) % Eos % (Auto) 4.0 (0-4.4) % Baso % (Auto) 0.8 (0.2-1.2) % Lymph # (Auto) 4.82 H (0.9-3.2) K/mm3 [place] # (Auto) 0.8 H (0.1-0.6) K/mm3 Eos # (Auto) 0.4 H (0-0.3) K/mm3 Baso # (Auto) 0.1 (0.0-0.1) K/mm3 Abs Immat Gran (auto) 0.03 (0.00-0.031) K/mm3 Absolute Neuts (auto) 3.9 (1.3-6.7) K/mm3 Absolute Nucleated RBC 0.000 (0.0-0.012) K/mm3 Nucleated RBC % 0.0 (0.0-0.2) % PT 13.2 (11.1-14.7) Seconds INR 1.0 APTT 28.0 (22.3-36.8) Seconds D-Dimer 0.97 H Cancelled (<0.48) ug/mL Sodium 138 (137-145) mmol/L Potassium 3.7 (3.4-5.0) mmol/L Chloride 105 (98-107) mmol/L Carbon Dioxide 20 L (22-30) mmol/L Anion Gap 13 H (4-12) mmol/L BUN 22 H (9-20) mg/dL Creatinine 0.86 (0.7-1.3) mg/dL Estim Creat Clear Calc 73 ml/min Estimated GFR > 60 (59 - ) Glucose 133 H (65-110) mg/dL Calcium 9.1 (8.4-10.2) mg/dL Total Bilirubin 0.5 (0.2-1.3) mg/dL AST 41 (17-59) U/L ALT 28 (6-50) U/L Alkaline Phosphatase 91 (38-126) U/L Troponin I < 0.012 (0.000-0.034) ng/mL NT-Pro-B Natriuret Pep 167 H (19.9-100) pg/mL Total Protein 8.0 (6.3-8.2) g/dL Albumin 4.6 (3.5-5.1) g/dL Lipase 134 (23-300) U/L / Range/Units 06:45 WBC (4.5-10.0) K/mm3 RBC (4.6-6.20) M/mm3 Hgb (14.0-18.0) g/dL Hct (42.0-52.0) % MCV (80-100) fl MCH (26-34) pg MCHC (32-36) g/dl RDW (11.5-14.5) % Plt Count (150-375) k/mm3 MPV (7.4-10.4) fl Immature Gran % (Auto) (0-0.5) % Neut % (Auto) (45.5-73.1) % Lymph % (Auto) (18.3-44.2) % [place] % (Auto) (2.6-8.5) % Eos % (Auto) (0-4.4) % Baso % (Auto) (0.2-1.2) % Lymph # (Auto) (0.9-3.2) K/mm3 [place]lette # (Auto) (0.1-0.6) K/mm3 Eos # (Auto) (0-0.3) K/mm3 Baso # (Auto) (0.0-0.1) K/mm3 Abs Immat Gran (auto) (0.00-0.031) K/mm3 Absolute Neuts (auto) (1.3-6.7) K/mm3 Absolute Nucleated RBC (0.0-0.012) K/mm3 Nucleated RBC % (0.0-0.2) % PT (11.1-14.7) Seconds INR APTT (22.3-36.8) Seconds D-Dimer (<0.48) ug/mL Sodium (137-145) mmol/L Potassium (3.4-5.0) mmol/L Chloride (98-107) mmol/L Carbon Dioxide (22-30) mmol/L Anion Gap (4-12) mmol/L BUN (9-20) mg/dL Creatinine (0.7-1.3) mg/dL Estim Creat Clear Calc ml/min Estimated GFR (59 - ) Glucose (65-110) mg/dL Calcium (8.4-10.2) mg/dL Total Bilirubin (0.2-1.3) mg/dL AST (17-59) U/L ALT (6-50) U/L Alkaline Phosphatase (38-126) U/L Troponin I < 0.012 (0.000-0.034) ng/mL NT-Pro-B Natriuret Pep (19.9-100) pg/mL Total Protein (6.3-8.2) g/dL Albumin (3.5-5.1) g/dL Lipase (23-300) U/L <Alex Jaime MD - Last Filed: 11/18/24 06:20> Lab Results 11/18/24 11/18/24 11/18/24 Range/Units 03:40 03:40 03:44 WBC 10.1 H (4.5-10.0) K/mm3 RBC 4.62 (4.6-6.20) M/mm3 Hgb 13.7 L (14.0-18.0) g/dL Hct 42.8 (42.0-52.0) % MCV 92.6 (80-100) fl MCH 29.7 (26-34) pg MCHC 32.0 (32-36) g/dl RDW 14.0 (11.5-14.5) % Plt Count 214 (150-375) k/mm3 MPV 10.8 H (7.4-10.4) fl Immature Gran % (Auto) 0.3 (0-0.5) % Neut % (Auto) 38.9 L (45.5-73.1) % Lymph % (Auto) 47.8 H (18.3-44.2) % [place]lette % (Auto) 8.2 (2.6-8.5) % Eos % (Auto) 4.0 (0-4.4) % Baso % (Auto) 0.8 (0.2-1.2) % Lymph # (Auto) 4.82 H (0.9-3.2) K/mm3 Sublette # (Auto) 0.8 H (0.1-0.6) K/mm3 Eos # (Auto) 0.4 H (0-0.3) K/mm3 Baso # (Auto) 0.1 (0.0-0.1) K/mm3 Abs Immat Gran (auto) 0.03 (0.00-0.031) K/mm3 Absolute Neuts (auto) 3.9 (1.3-6.7) K/mm3 Absolute Nucleated RBC 0.000 (0.0-0.012) K/mm3 Nucleated RBC % 0.0 (0.0-0.2) % PT 13.2 (11.1-14.7) Seconds INR 1.0 APTT 28.0 (22.3-36.8) Seconds D-Dimer 0.97 H Cancelled (<0.48) ug/mL Sodium 138 (137-145) mmol/L Potassium 3.7 (3.4-5.0) mmol/L Chloride 105 (98-107) mmol/L Carbon Dioxide 20 L (22-30) mmol/L Anion Gap 13 H (4-12) mmol/L BUN 22 H (9-20) mg/dL Creatinine 0.86 (0.7-1.3) mg/dL Estim Creat Clear Calc 73 ml/min Estimated GFR > 60 (59 - ) Glucose 133 H (65-110) mg/dL Calcium 9.1 (8.4-10.2) mg/dL Total Bilirubin 0.5 (0.2-1.3) mg/dL AST 41 (17-59) U/L ALT 28 (6-50) U/L Alkaline Phosphatase 91 (38-126) U/L Troponin I < 0.012 (0.000-0.034) ng/mL NT-Pro-B Natriuret Pep 167 H (19.9-100) pg/mL Total Protein 8.0 (6.3-8.2) g/dL Albumin 4.6 (3.5-5.1) g/dL Lipase 134 (23-300) U/L 11/18/24 Range/Units 06:45 WBC (4.5-10.0) K/mm3 RBC (4.6-6.20) M/mm3 Hgb (14.0-18.0) g/dL Hct (42.0-52.0) % MCV (80-100) fl MCH (26-34) pg MCHC (32-36) g/dl RDW (11.5-14.5) % Plt Count (150-375) k/mm3 MPV (7.4-10.4) fl Immature Gran % (Auto) (0-0.5) % Neut % (Auto) (45.5-73.1) % Lymph % (Auto) (18.3-44.2) % [place] % (Auto) (2.6-8.5) % Eos % (Auto) (0-4.4) % Baso % (Auto) (0.2-1.2) % Lymph # (Auto) (0.9-3.2) K/mm3 [place] # (Auto) (0.1-0.6) K/mm3 Eos # (Auto) (0-0.3) K/mm3 Baso # (Auto) (0.0-0.1) K/mm3 Abs Immat Gran (auto) (0.00-0.031) K/mm3 Absolute Neuts (auto) (1.3-6.7) K/mm3 Absolute Nucleated RBC (0.0-0.012) K/mm3 Nucleated RBC % (0.0-0.2) % PT (11.1-14.7) Seconds INR APTT (22.3-36.8) Seconds D-Dimer (<0.48) ug/mL Sodium (137-145) mmol/L Potassium (3.4-5.0) mmol/L Chloride (98-107) mmol/L Carbon Dioxide (22-30) mmol/L Anion Gap (4-12) mmol/L BUN (9-20) mg/dL Creatinine (0.7-1.3) mg/dL Estim Creat Clear Calc ml/min Estimated GFR (59 - ) Glucose (65-110) mg/dL Calcium (8.4-10.2) mg/dL Total Bilirubin (0.2-1.3) mg/dL AST (17-59) U/L ALT (6-50) U/L Alkaline Phosphatase (38-126) U/L Troponin I < 0.012 (0.000-0.034) ng/mL NT-Pro-B Natriuret Pep (19.9-100) pg/mL Total Protein (6.3-8.2) g/dL Albumin (3.5-5.1) g/dL Lipase (23-300) U/L <Sena Shepard MD - Last Filed: 11/18/24 07:30> Discharge Plan Discharge Clinical Impression: Dizziness, Anxiety <Alex Jaime MD - Last Filed: 11/18/24 06:20> Patient Disposition: Home <Alex Jaime MD - Last Filed: 11/18/24 06:20> Condition: Stable <Alex Jaime MD - Last Filed: 11/18/24 06:20> Instructions: Antibiotic Form, Dizziness (ED) <Alex Jaime MD - Last Filed: 11/18/24 06:20> Additional Instructions: You were seen in the hospital after episode dizziness and palpitations. Your workup here including CTA of your chest, Ct Brain, laboratory studies with troponin and BNP, and EKG reassuring. Please follow-up with your primary care physician for further management. If you develop any new or worsening symptoms such as chest pain or shortness of breath, please return to ED for re-evaluation. <Alex Jaime MD - Last Filed: 11/18/24 06:20> Patient Language: Greek <Alex Jaime MD - Last Filed: 11/18/24 06:20> Prescriptions: No Action levothyroxine 75 mcg tablet mirtazapine 30 mg tablet metoprolol succinate 25 mg tablet extended release 24 hr PO escitalopram oxalate 20 mg tablet rosuvastatin 5 mg tablet umeclidinium-vilanterol [Anoro Ellipta] 62.5-25 mcg/actuation blister with device INHALATION <Alex Jaime MD - Last Filed: 11/18/24 06:20> Follow-up/Referrals: Mickey,Brandi A., STACKING MACHINE OPERATOR [Primary Care Provider] - 2 Days <Alex Jaime MD - Last Filed: 11/18/24 06:20>
[2024-11-18] MEDS: ASPIRIN 81 MG CHEWABLE TABLET 324 MG PO (04:01)
[2024-11-18] MEDS: diazePAM INJ (*CRX) 10 MG/2 ML SYRINGE 5 MG IV PUSH (04:02)
[2024-11-18 04:05] LABS: Prothrombin Time 13.2 Seconds (11.1-14.7)
[2024-11-18 04:07] LABS: Troponin I < 0.012 ng/mL (0.000-0.034)
[2024-11-18 04:09] LABS: D Dimer 0.97 ug/mL (<0.48)
--- OUTSIDE RECORDS SUMMARY | 2024-11-18 04:12 | XMS_ITS | Continuity of Care Document ---
Author Organization [facility] Address [address] [place] [address] [address] [place] [address] Phone Care Team Providers Care Business Banking Officer Name Role Phone Tolentino OD, Joaquin Unavailable Unavailable Advance Directives Directive Yes / No Effective Date File Name No Information Encounters Encounter Description Practice Location Reason(s) For Visit Diagnoses Date Provider Providers Copied on Encounter [facility], [address], [place], [place], [id number], [place] tel:[phone] [facility] No Information Patric-2 [phone] Tolentino OD Joaquin. [address] , [address], [place], [address], [place]. tel:[phone] Family History Family Member Type Diagnosis Age At Onset No Information Payers Payer name Insurance type Covered alliance party ID Authoriza tion(s) No Information Social History [...]
--- OUTSIDE RECORDS SUMMARY | 2024-11-18 04:12 | XMS_ITS | Referral Summary ---
Author Organization [facility] Address [address] [place] [address] Care Team Providers Care Cyber Security Engineer Name Role Phone Michelle Gutierrez NP Unavailable Damaris Felix MD Unavailable Kamari Arora NP Unavailable Katie Roach Unavailable [phone] Brandi Arevalo NP Primary Care Provider Shannan Munoz NP Unavailable Encounters Date Type Department Care Team Description 11/16/2024 12:30 PM CDT Office Visit [facility] Department of Psychiatry [address] [facility] [address] [place] [address] Opal Lancaster MD CA (generalized anxiety disorder) (Primary Dx); Major depressive disorder, recurrent episode, in partial remission; ADHD (attention deficit hyperactivity disorder), inattentive type 11/09/2024 11:30 AM CDT Office Visit [facility] Cardiology [address] [facility] Medical Office Building [address] [place] [address] Corie Sam NP Paroxysmal atrial fibrillation (HCC) 11/08/2024 10:00 AM CDT Office Visit [facility] Neuro Muscle [address] [facility] 6th [place] [address] [place] [address] Pasquale Sapp MD Polyneuropathy (Primary Dx) 11/04/2024 Telephone [facility] Cardiology [address] [facility] 8th [place] [address] [place] [address] Bienvenido Perkins MD Atrial Fibrillation 10/29/2024 11:45 AM CDT Ancillary Procedure [facility] Cardiology [address] [facility] 8th [place] [address] [place] [address] Racing heart beat; Palpitations 10/29/2024 Orders Only [facility] Cardiology [address] [facility] Floor 1, [address] [place] [address] Bienvenido Perkins MD Racing heart beat (Primary Dx); Palpitations 10/11/2024 2:40 PM CDT Office Visit [facility] Gastroenterology [address] [facility] 12th [place] [address] [place] [address] Eleni Cobb PA Esophageal dysphagia (Primary Dx) 10/04/2024 Documentation [facility] Department of Psychiatry [address] [facility] [address] [place] [address] Ene Villela BS 09/29/24 no show (09/29/24 no show letter sent both by [employer] and [employer]PS (1st offense return)) 10/04/2024 9:00 AM CDT Telemedicine [facility] Department of Psychiatry [address] [facility] [address] [place] [address] Shannan Munoz NP CA (generalized anxiety disorder) (Primary Dx); Major depressive disorder, recurrent episode, in partial remission; ADHD (attention deficit hyperactivity disorder), inattentive type; Memory loss 09/22/2024 10:30 AM CDT Telemedicine [facility] [address] [facility] 6th Floor [address] [place] [address] Sarahi Davidson NP Memory impairment (Primary Dx) 09/06/2024 10:30 AM HOOD FITTER Telemedicine [facility] Department of Psychiatry [address] [facility] [address] [place] [address] Shannan Munoz NP CA (generalized anxiety disorder) (Primary Dx); Major depressive disorder, recurrent episode, in partial remission 09/03/2024 Results Follow-Up [facility] Gastroenterology [address] [facility] 12th [place] [address] [place] [address] Magaly Hamilton MD 09/02/2024 11:20 AM HOOD FITTER Imaging Exam [facility] Ophthalmology [address] [facility] 6th [place] [address] 09/02/2024 10:45 AM HOOD FITTER Office Visit [facility] Ophthalmology [address] [facility] 6th Floor, [address] [place] [address] Danisha Barnard, OD Visual disturbance (Primary Dx); Visual disturbance, subjective; Vertical strabismus of right eye; Vitreous syneresis of both eyes; Pseudophakia of both eyes 2024 9:15 AM HOOD FITTER - 2024 10:15 AM HOOD FITTER Surgery [address] [address] Magaly Hamilton MD COLON REMOVAL SNARE 2024 9:17 AM HOOD FITTER Anesthesia Event [address] [address] Sierra Babin MD Bisch, Abby Michelle, HOLA 2024 7:49 AM HOOD FITTER - 2024 10:48 AM HOOD FITTER Hospital Encounter [address] [address] Magaly Hamilton MD Screening for colon cancer; Polyp of colon Discharge Disposition: Discharge to home or self care 08/24/2024 Results Follow-Up [facility] Primary Care at [address] [address] Brandi Arevalo NP 08/24/2024 9:45 AM HOOD FITTER - 08/24/2024 11:59 PM HOOD FITTER Hospital Encounter [address] [address] Pure hypercholesterolemia; Hypothyroidism, unspecified type Discharge Disposition: Discharge to home or self care 08/24/2024 9:45 AM HOOD FITTER Lab [facility] Outpatient Lab at [address] [address] Hypothyroidism (Primary Dx) 08/24/2024 10:30 AM HOOD FITTER Office Visit [facility] Primary Care at [address] [address] Brandi Arevalo NP Chest pain, [...] 1 tablet (75 mcg total) by mouth grid operator before breakfast 90 tablet 3 05/13/20 24 [...] 09/05/2024 Assessment & Plan (09/05/2024 1:03 PM HOOD FITTER): No retinal detachment (RD), pt ed. Monitor. S/sx retinal detachment (RD) reviewed. Chest pain 08/24/2024 Assessment & Plan (08/24/2024 3:33 PM HOOD FITTER): Attributed to anxiety. EKG shows NSR, no [...] 01/13/2023 Assessment & Plan (08/24/2024 8:54 AM HOOD FITTER): Recheck labs Pharmacotherapy as ordered. Continue atorvastatin Assessment & Plan (05/13/2024 3:28 PM HOOD FITTER): Lipid abnormalities are stable. Pharmacotherapy as ordered. [...] 06/19/2022 Assessment & Plan (09/05/2024 1:03 PM HOOD FITTER): Patient was educated on the intraocular lens (IOL) status. Follow. Assessment & Plan (05/20/2024 4:24 PM HOOD FITTER): Declined DFE Release updated glasses Rx Assessment & Plan (06/18/2023 1:56 PM HOOD FITTER): Central, clear, monitor Assessment & Plan (06/19/2022 3:36 PM HOOD FITTER): Central, clear. Monitor. Vertical strabismus of right eye 06/19/2022 Assessment & Plan (09/05/2024 1:03 PM HOOD FITTER): Slight adjustment to prism - release updated Rx Assessment & Plan (05/20/2024 4:24 PM HOOD FITTER): Slight change to prism Rx Assessment & Plan (06/18/2023 1:55 PM HOOD FITTER): Largely stable RHT that is comitant, 1pd increase improves subjective symptoms in exam. Will update specs as desired. Due to mild eyestrain/pain and feeling around left amish, will order ESR/CRP. Low likelihood for GCA based off symptoms, and no swelling of discs. If normal, will update specs and call/RTC with any new/worsening or persistent symptoms Assessment & Plan (06/19/2022 3:41 PM HOOD FITTER): Largely stable findings over current spec Rx [...] disease) Assessment & Plan (08/24/2024 8:55 AM HOOD FITTER): Managed by pulm. Continue albuterol hfa, anoro [...] 04/20/2020 Assessment & Plan (08/21/2021 8:25 PM HOOD FITTER): -present for 18 months after noise exposure [...] 06/03/2018 Assessment & Plan (08/24/2024 8:52 AM HOOD FITTER): Stable. On surveillance. Continues to follow-up with oncology every 6 months Assessment & Plan (05/13/2024 3:24 PM HOOD FITTER): Stable. On surveillance. Continues to follow-up with oncology every 6 months Anxiety 07/23/2016 Assessment & Plan (08/24/2024 8:57 AM HOOD FITTER): Managed by Psych. Mood is well controlled. [...] needed. Assessment & Plan (08/14/2021 7:30 PM HOOD FITTER): At home, he is on Klonopin 0.5 mg daily as needed. - Resume home meds MDD (major depressive disorder) 07/23/2016 Assessment & Plan (08/24/2024 8:57 AM HOOD FITTER): Managed by Psych. Mood is well controlled. [...] psychiatry. Assessment & Plan (08/15/2021 4:14 PM HOOD FITTER): Will resume home meds, trazodone and Mirtazapine. Patient endorsed having suicidal idea for one day due to severe headache [facility] inpatient recommedned by primary oncology: consulted 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) 02/20/2016 Assessment & Plan (08/24/2024 8:52 AM HOOD FITTER): Stable, on surveillance. Last scan August 2024 Assessment & Plan (05/13/2024 3:24 PM HOOD FITTER): Stable, on surveillance Assessment & Plan (08/14/2021 7:31 PM HOOD FITTER): S/P gamma knife radiosurgery in 2016, has had sever MRI with no new lesions. - Medical oncology consult Sleep apnea 03/04/2013 Malignant neoplasm of prostate 03/04/2013 Hypothyroidism 03/04/2013 Assessment & Plan (08/24/2024 8:56 AM HOOD FITTER): Euthyroid. Continue levothyroxine. Recheck labs Assessment & Plan (05/13/2024 3:24 PM HOOD FITTER): Euthyroid. Continue levothyroxine. Follow-up 3-4 months for physical Assessment & Plan (10/27/2023 10:21 AM CDT): Stable well controlled on current regimen, will send in refills as needed Assessment & Plan (01/14/2023 8:39 AM CDT): Stable well controlled on current regimen, will send in refills as needed Assessment & Plan (08/21/2021 8:24 PM HOOD FITTER): - will check TSH Assessment & Plan (08/14/2021 7:30 PM HOOD FITTER): Resumed home Synthroid 75 mcg. Attention deficit [...] 08/14/2021 Assessment & Plan (08/17/2021 10:43 AM HOOD FITTER): Headache etiology is unclear. Goal of admission [...] 05/13/2024 Assessment & Plan (06/14/2021 8:46 AM HOOD FITTER): There is a 1 to 2 mm [...] 11/24/201801/2024 Assessment & Plan (08/14/2021 7:33 PM HOOD FITTER): CT chest in the ED showed stable [...] Immunization Administration Dates Next Due COVID-19 mRNA ([employer] 0.3 m L (30 mcg) vaccine (12 [...] on file Legal Sex Male 12:11 PM HOOD FITTER Gender Identity Male 11/21/2022 6:52 PM CDT Sexual Orientation Not on file Last Filed Vital Signs Vital Sign Reading Time Taken Comments Blood Pressure 118/62 11/16/2024 11:56 AM CDT Pulse 57 11/16/2024 11:56 AM CDT Temperature 36.7 C (98 F) 10/11/2024 1:33 PM CDT Respiratory Rate 22 2024 10:35 AM HOOD FITTER Oxygen Saturation 95% 11/09/2024 11:11 AM CDT [...] abdominal pain Medical Devices Implanted Type Area Glueline Worker Device Identifier Shelf Expiration Date Model / Serial / Lot Vascular Access Power Port Chest Wall [employer] 2002 Stabilit First Kit Fracture - [id number] Implanted:Qty: 1 on 12/19/2017 at [facility] [employer] 10/05/20192002 / / [id number] Ide[employer] 3353-01 - [id number] Implanted:Qty: 1 on 09/15/2018 at [facility] [employer] 06/05/2020 3353-01 / / [id number] Procedures Procedure Name Priority Date/Time Associated Diagnosis Comments SANTOS VISUAL FIELD - OU - BOTH EYES Routine 09/02/2024 11:40 AM HOOD FITTER Visual disturbance Visual disturbance, subjective SURGICAL PATHOLOGY Routine 2024 9:53 AM HOOD FITTER Screening for colon cancer Polyp of colon COLONOSCOPY 2024 9:34 AM HOOD FITTER EGD 2024 9:23 AM HOOD FITTER ESOPHAGOGASTRODUODENOSCOPY 08/25 9:18 AM HOOD FITTER Screening for colon cancer Polyp of colon COLON REMOVAL SNARE 2024 9:18 AM HOOD FITTER Screening for colon cancer Polyp of colon ECG 12-LEAD Routine 08/24/2024 3:31 PM HOOD FITTER Chest pain, unspecified type EGFR Routine 08/24/2024 9:45 AM HOOD FITTER Pure hypercholesterolemia DIFFERENTIAL AUTO Routine 08/24/2024 9:45 AM HOOD FITTER Pure hypercholesterolemia THYROID FUNCTION CASCADE Routine 025 9:45 AM HOOD FITTER Hypothyroidism, unspecified type LIPID PANEL Routine 08/24/2024 9:45 AM HOOD FITTER Pure hypercholesterolemia CBC WITH AUTO DIFFERENTIAL Routine 08/24 9:45 AM HOOD FITTER Pure hypercholesterolemia COMPREHENSIVE METABOLIC PANEL Routine 9:45 AM HOOD FITTER Pure hypercholesterolemia CT CHEST ABDOMEN W CONTRAST Schedule Routine, Read Routine (OP Routine) 04/15/2024 4:12 PM CDT 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) 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 from Last 3 Months or Most Recently Relevant to Health Maintenance Results * Santos Visual Field - OU - Both Eyes (09/02/2024 11:40 AM HOOD FITTER) Pattern Deviation OS 6.19 dB CONTINUUM Pattern Deviation OD 5.75 dB CONTINUUM Mean Deviation OS -6.38 dB CONTINUUM Mean Deviation OD -5.67 dB CONTINUUM Anatomical Region Laterality Modality Head Other Narrative 09/05/2024 1:02 PM HOOD FITTER Right Eye Fixation was good. Cooperation was [...] esult * Surgical pathology (2024 9:53 AM HOOD FITTER) Tissue specimen (specimen) (Polyp(s), colon/colorectal, esophageal, gastric) 2024 9:53 AM HOOD FITTER Narrative PATHOLOGY [facility] - 08/26/2024 11:20 PM HOOD FITTER EPIC results best viewed via link to PDF [facility] [place] [address] Note to Patients: This report may contain [...] Gender: M : 1950 (Age: 74) Address: [address] [place], [place] [id number] Hospital #: [id number] Taken:2024 Received:2024 Reported: 08/26/2024 Patient Type: [facility] Service: Gastro Location: Physician(s): Miguel Vee N.P. [...] Surgical Pathology and Flow Cytometry Departments at [facility] as part of an ongoing air quality consultant program and in compliance with federally mandated [...] Surgical Pathology and Flow Cytometry Departments of [facility]. It has not been cleared or approved by the U. S. Food and Drug Administration. IMAGES AND SCANNED DOCUMENTS, IF INCLUDED, ONLY VIEWABLE IN PDF VERSION OF REPORT us Magaly Hamilton MD LAB PATHOLOGY ORDERABLES Final Result PATHOLOGY [facility] 3rd Floor [place], [place] [phone] * Colonoscopy (2024 9:34 AM HOOD FITTER) Anatomical Region Laterality Modality Other Narrative Procedure Note Magaly Hamilton MD - 2024 9:34 AM CST GI ENDOSCOPY [facility] Patient Name: Don Doreen Procedure Date: 2024 9:34 AM Date of : 1950 Admit Type: Outpatient Age: 74 Gender: Male Attending MD: Magaly Hamilton M.D. Room: [facility] ENDOSCOPY ROOM 3 Note Status: Finalized Procedure: Colonoscopy Indications: High risk colon cancer surveillance: Personalhist [id number]|2024-11-18 04:12:00|2024-11-18 04:12:00|XMS_ITS|NICOLAS NGUYEN|External Medical Summaries|[id number]|" Clinical Summary Created on: November 18, 2024 Don Logan : 1950 Sex: Male Author Organization [facility] Address [address] [place] [address] Care Team Providers Care Cyber Security Engineer Name Role Phone Michelle Gutierrez NP Unavailable Damaris Felix MD Unavailable Kamari Arora NP Unavailable Katie Roach Unavailable [phone] Brandi Arevalo NP Primary Care Provider Shannan [...] 1 tablet (75 mcg total) by mouth grid operator before breakfast 90 tablet 3 05/13/20 24 [...] 09/05/2024 Assessment & Plan (09/05/2024 1:03 PM HOOD FITTER): No retinal detachment (RD), pt ed. Monitor. S/sx retinal detachment (RD) reviewed. Chest pain 08/24/2024 Assessment & Plan (08/24/2024 3:33 PM HOOD FITTER): Attributed to anxiety. EKG shows NSR, no [...] 01/13/2023 Assessment & Plan (08/24/2024 8:54 AM HOOD FITTER): Recheck labs Pharmacotherapy as ordered. Continue atorvastatin Assessment & Plan (05/13/2024 3:28 PM HOOD FITTER): Lipid abnormalities are stable. Pharmacotherapy as ordered. [...] 06/19/2022 Assessment & Plan (09/05/2024 1:03 PM HOOD FITTER): Patient was educated on the intraocular lens (IOL) status. Follow. Assessment & Plan (05/20/2024 4:24 PM HOOD FITTER): Declined DFE Release updated glasses Rx Assessment & Plan (06/18/2023 1:56 PM HOOD FITTER): Central, clear, monitor Assessment & Plan (06/19/2022 3:36 PM HOOD FITTER): Central, clear. Monitor. Vertical strabismus of right eye 06/19/2022 Assessment & Plan (09/05/2024 1:03 PM HOOD FITTER): Slight adjustment to prism - release updated Rx Assessment & Plan (05/20/2024 4:24 PM HOOD FITTER): Slight change to prism Rx Assessment & Plan (06/18/2023 1:55 PM HOOD FITTER): Largely stable RHT that is comitant, 1pd increase improves subjective symptoms in exam. Will update specs as desired. Due to mild eyestrain/pain and feeling around left amish, will order ESR/CRP. Low likelihood for GCA based off symptoms, and no swelling of discs. If normal, will update specs and call/RTC with any new/worsening or persistent symptoms Assessment & Plan (06/19/2022 3:41 PM HOOD FITTER): Largely stable findings over current spec Rx [...] disease) Assessment & Plan (08/24/2024 8:55 AM HOOD FITTER): Managed by pulm. Continue albuterol hfa, anoro [...] 04/20/2020 Assessment & Plan (08/21/2021 8:25 PM HOOD FITTER): -present for 18 months after noise exposure [...] 06/03/2018 Assessment & Plan (08/24/2024 8:52 AM HOOD FITTER): Stable. On surveillance. Continues to follow-up with oncology every 6 months Assessment & Plan (05/13/2024 3:24 PM HOOD FITTER): Stable. On surveillance. Continues to follow-up with oncology every 6 months Anxiety 07/23/2016 Assessment & Plan (08/24/2024 8:57 AM HOOD FITTER): Managed by Psych. Mood is well controlled. [...] needed. Assessment & Plan (08/14/2021 7:30 PM HOOD FITTER): At home, he is on Klonopin 0.5 mg daily as needed. - Resume home meds MDD (major depressive disorder) 07/23/2016 Assessment & Plan (08/24/2024 8:57 AM HOOD FITTER): Managed by Psych. Mood is well controlled. [...] psychiatry. Assessment & Plan (08/15/2021 4:14 PM HOOD FITTER): Will resume home meds, trazodone and Mirtazapine. Patient endorsed having suicidal idea for one day due to severe headache [facility] inpatient recommedned by primary oncology: consulted 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) 02/20/2016 Assessment & Plan (08/24/2024 8:52 AM HOOD FITTER): Stable, on surveillance. Last scan August 2024 Assessment & Plan (05/13/2024 3:24 PM HOOD FITTER): Stable, on surveillance Assessment & Plan (08/14/2021 7:31 PM HOOD FITTER): S/P gamma knife radiosurgery in 2016, has had sever MRI with no new lesions. - Medical oncology consult Sleep apnea 03/04/2013 Malignant neoplasm of prostate 03/04/2013 Hypothyroidism 03/04/2013 Assessment & Plan (08/24/2024 8:56 AM HOOD FITTER): Euthyroid. Continue levothyroxine. Recheck labs Assessment & Plan (05/13/2024 3:24 PM HOOD FITTER): Euthyroid. Continue levothyroxine. Follow-up 3-4 months for physical Assessment & Plan (10/27/2023 10:21 AM CDT): Stable well controlled on current regimen, will send in refills as needed Assessment & Plan (01/14/2023 8:39 AM CDT): Stable well controlled on current regimen, will send in refills as needed Assessment & Plan (08/21/2021 8:24 PM HOOD FITTER): - will check TSH Assessment & Plan (08/14/2021 7:30 PM HOOD FITTER): Resumed home Synthroid 75 mcg. Attention deficit [...] 08/14/2021 Assessment & Plan (08/17/2021 10:43 AM HOOD FITTER): Headache etiology is unclear. Goal of admission [...] 05/13/2024 Assessment & Plan (06/14/2021 8:46 AM HOOD FITTER): There is a 1 to 2 mm [...] 11/24/201801/2024 Assessment & Plan (08/14/2021 7:33 PM HOOD FITTER): CT chest in the ED showed stable [...] Description 11/16/2024 12:30 PM CDT Office Visit [facility] Department of Psychiatry [address] [place] [phone] Opal Lancaster MD [place] (generalized anxiety disorder) (Primary Dx); Major depressive disorder, recurrent episode, in partial remission; ADHD (attention deficit hyperactivity disorder), inattentive type 11/09/2024 11:30 AM CDT Office Visit [facility] Cardiology [address] [facility] Office Building [address] [place] [address] Corie Sam NP Paroxysmal atrial fibrillation (HCC) 11/08/2024 10:00 AM CDT Office Visit [facility] Neuro Muscle [address] [facility] 6th [place] [address] Pasquale Sapp MD Polyneuropathy (Primary Dx) 11/04/2024 Telephone [facility] Cardiology [facility] 8th [place] [address] [place] [phone] Bienvenido Perkins MD Atrial Fibrillation 10/29/2024 11:45 AM CDT Ancillary Procedure [facility] Cardiology [address] [place] [address] 8th [place] [address] [place] [address] Racing heart beat; Palpitations 10/29/2024 Orders Only [facility] Cardiology [address] [facility] Floor 1, [address] [place] [address] Bienvenido Perkins MD Racing heart beat (Primary Dx); Palpitations 10/11/2024 2:40 PM CDT Office Visit [facility] Gastroenterology [address] [facility] 12th [place] [address] [place] [address] Eleni Cobb PA Esophageal dysphagia (Primary Dx) 10/04/2024 9:00 AM CDT Telemedicine [facility] Department of Psychiatry [address] [facility] [address] [place] [address] Shannan Munoz NP CA (generalized anxiety disorder) (Primary Dx); Major depressive disorder, recurrent episode, in partial remission; ADHD (attention deficit hyperactivity disorder), inattentive type; Memory loss 10/04/2024 Documentation [facility] Department of Psychiatry [address] [facility] [address] [place] [phone] Ene Villela, MACKENZIE 09/29/24 no show (09/29/24 no show letter sent both by [facility] and [employer] (1st offense return)) 09/22/2024 10:30 AM CDT Telemedicine [facility] [address] [facility] 6th Floor [address] [place] [address] Sarahi Davidson NP Memory impairment (Primary Dx) 09/06/2024 10:30 AM HOOD FITTER Telemedicine [facility] Department of Psychiatry [address] [facility] [address] [place] [phone] Shannan Munoz NP CA (generalized anxiety disorder) (Primary Dx); Major depressive disorder, recurrent episode, in partial remission 09/03/2024 Results Follow-Up [facility] Gastroenterology [address] [facility] 12th [place] [address] [place] [address] Magaly Hamilton MD 09/02/2024 11:20 AM HOOD FITTER Imaging Exam [facility] Ophthalmology [address] [facility] 6th [place] [address] 09/02/2024 10:45 AM HOOD FITTER Office Visit [facility] Ophthalmology [address] [facility] 6th [facility], [address] [place] [phone] Danisha Barnard, DAMARIS Visual disturbance (Primary Dx); Visual disturbance, subjective; Vertical strabismus of right eye; Vitreous syneresis of both eyes; Pseudophakia of both eyes 2024 9:17 AM HOOD FITTER Anesthesia Event [facility] [place] [id number] [facility] [address] [place] [address] Sierra Babin MD Bisch, Abby Michelle, HOLA 2024 9:15 AM HOOD FITTER - 2024 10:15 AM HOOD FITTER Surgery [facility] [address] [place] [address] Magaly Hamilton MD COLON REMOVAL SNARE 2024 7:49 AM HOOD FITTER - 2024 10:48 AM HOOD FITTER Hospital Encounter [facility] [address] [address] Magaly Hamilton MD Screening for colon cancer; Polyp of colon Discharge Disposition: Discharge to home or self care 08/24/2024 10:30 AM HOOD FITTER Office Visit [facility] Primary Care at [address] [phone] Brandi Arevalo NP Chest pain, unspecified type (Primary Dx); Hypothyroidism, unspecified type; Mild episode of recurrent major depressive disorder; Anxiety; Centrilobular emphysema (HCC); Pure hypercholesterolemia; 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) (HCC); 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) 08/24/2024 9:45 AM HOOD FITTER - 08/24/2024 11:59 PM HOOD FITTER Hospital Encounter [address] [address] Pure hypercholesterolemia; Hypothyroidism, unspecified type Discharge Disposition: Discharge to home or self care 08/24/2024 9:45 AM HOOD FITTER Lab [facility] Outpatient Lab at [address] [id number] Hypothyroidism (Primary Dx) 08/24/2024 Results Follow-Up [facility] Primary Care at [address] [phone] Brandi Arevalo NP from Last 3 Months Immunizations Immunization Administration Dates Next Due COVID-19 mRNA ([employer] 0.3 m L (30 mcg) vaccine (12 [...] on file Legal Sex Male 12:11 PM HOOD FITTER Gender Identity Male 11/21/2022 6:52 PM CDT Sexual Orientation Not on file Obstetrics History Last Filed Vital Signs Vital Sign Reading Time Taken Comments Blood Pressure 118/62 11/16/2024 11:56 AM CDT Pulse 57 11/16/2024 11:56 AM CDT Temperature 36.7 C (98 F) 10/11/2024 1:33 PM CDT Respiratory Rate 22 2024 10:35 AM HOOD FITTER Oxygen Saturation 95% 11/09/2024 11:11 AM CDT [...] history exists Medical Devices Implanted Type Area Glueline Worker Device Identifier Shelf Expiration Date Model / Serial / Lot Vascular Access Power Port Chest Wall Ideabove 2002 Stabilit First Kit Fracture - [id number] Implanted:Qty: 1 on 12/19/2017 at [facility] [employer] 10/05/20192002 / / [id number] Ideabove 335-01 - [id number] Implanted:Qty: 1 on 09/15/2018 at [facility] [employer] 06/05/2020 3353-01 / / [id number] Procedures Procedure Name Priority Date/Time Associated Diagnosis Comments SANTOS VISUAL FIELD - OU - BOTH EYES Routine 09/02/2024 11:40 AM HOOD FITTER Visual disturbance Visual disturbance, subjective SURGICAL PATHOLOGY Routine 2024 9:53 AM HOOD FITTER Screening for colon cancer Polyp of colon COLONOSCOPY 2024 9:34 AM HOOD FITTER EGD 2024 9:23 AM HOOD FITTER ESOPHAGOGASTRODUODENOSCOPY 08/25 9:18 AM HOOD FITTER Screening for colon cancer Polyp of colon COLON REMOVAL SNARE 2024 9:18 AM HOOD FITTER Screening for colon cancer Polyp of colon ECG 12-LEAD Routine 08/24/2024 3:31 PM HOOD FITTER Chest pain, unspecified type EGFR Routine 08/24/2024 9:45 AM HOOD FITTER Pure hypercholesterolemia DIFFERENTIAL AUTO Routine 08/24/2024 9:45 AM HOOD FITTER Pure hypercholesterolemia THYROID FUNCTION CASCADE Routine 025 9:45 AM HOOD FITTER Hypothyroidism, unspecified type LIPID PANEL Routine 08/24/2024 9:45 AM HOOD FITTER Pure hypercholesterolemia CBC WITH AUTO DIFFERENTIAL Routine 08/24 9:45 AM HOOD FITTER Pure hypercholesterolemia COMPREHENSIVE METABOLIC PANEL Routine 9:45 AM HOOD FITTER Pure hypercholesterolemia CT CHEST ABDOMEN W CONTRAST Schedule Routine, Read Routine (OP Routine) 04/15/2024 4:12 PM CDT 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) 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
--- OUTSIDE RECORDS SUMMARY | 2024-11-18 04:13 | XMS_ITS ---
Author Organization [facility] Address [address] [place] [address] Care Team Providers Care Separations Scientist Name Role Phone Michelle Gutierrez NP Unavailable Damaris Felix MD Unavailable Kamari Arora NP Unavailable Katie Roach Unavailable [phone] Brandi Arevalo NP Primary Care Provider [phone] Shannan Munoz NP Unavailable Active Problems Problem Noted Date Diagnosed Date Vitreous syneresis of both eyes 09/05/2024 Assessment & Plan (09/05/2024 1:03 PM CHEF INSTRUCTOR): No retinal detachment (RD), pt ed. Monitor. S/sx retinal detachment (RD) reviewed. Chest pain 08/24/2024 Assessment & Plan (08/24/2024 3:33 PM CHEF INSTRUCTOR): Attributed to anxiety. EKG shows NSR, no [...] 01/13/2023 Assessment & Plan (08/24/2024 8:54 AM CHEF INSTRUCTOR): Recheck labs Pharmacotherapy as ordered. Continue atorvastatin Assessment & Plan (05/13/2024 3:28 PM CHEF INSTRUCTOR): Lipid abnormalities are stable. Pharmacotherapy as ordered. [...] 06/19/2022 Assessment & Plan (09/05/2024 1:03 PM CHEF INSTRUCTOR): Patient was educated on the intraocular lens (IOL) status. Follow. Assessment & Plan (05/20/2024 4:24 PM CHEF INSTRUCTOR): Declined DFE Release updated glasses Rx Assessment & Plan (06/18/2023 1:56 PM CHEF INSTRUCTOR): Central, clear, monitor Assessment & Plan (06/19/2022 3:36 PM CHEF INSTRUCTOR): Central, clear. Monitor. Vertical strabismus of right eye 06/19/2022 Assessment & Plan (09/05/2024 1:03 PM CHEF INSTRUCTOR): Slight adjustment to prism - release updated Rx Assessment & Plan (05/20/2024 4:24 PM CHEF INSTRUCTOR): Slight change to prism Rx Assessment & Plan (06/18/2023 1:55 PM CHEF INSTRUCTOR): Largely stable RHT that is comitant, 1pd increase improves subjective symptoms in exam. Will update specs as desired. Due to mild eyestrain/pain and feeling around left confucianist, will order ESR/CRP. Low likelihood for GCA based off symptoms, and no swelling of discs. If normal, will update specs and call/RTC with any new/worsening or persistent symptoms Assessment & Plan (06/19/2022 3:41 PM CHEF INSTRUCTOR): Largely stable findings over current spec Rx [...] disease) Assessment & Plan (08/24/2024 8:55 AM CHEF INSTRUCTOR): Managed by pulm. Continue albuterol hfa, anoro [...] 04/20/2020 Assessment & Plan (08/21/2021 8:25 PM CHEF INSTRUCTOR): -present for 18 months after noise exposure [...] Staging:Clinical:Stage IV(pM1c) - Signed by Michelle Gutierrez COMMERCIAL ACCOUNT EXECUTIVE on 06/03/2018 Assessment & Plan (08/24/2024 8:52 AM CHEF INSTRUCTOR): Stable. On surveillance. Continues to follow-up with oncology every 6 months Assessment & Plan (05/13/2024 3:24 PM CHEF INSTRUCTOR): Stable. On surveillance. Continues to follow-up with oncology every 6 months Anxiety 07/23/2016 Assessment & Plan (08/24/2024 8:57 AM CHEF INSTRUCTOR): Managed by Psych. Mood is well controlled. [...] needed. Assessment & Plan (08/14/2021 7:30 PM CHEF INSTRUCTOR): At home, he is on Klonopin 0.5 mg daily as needed. - Resume home meds MDD (major depressive disorder) 07/23/2016 Assessment & Plan (08/24/2024 8:57 AM CHEF INSTRUCTOR): Managed by Psych. Mood is well controlled. [...] psychiatry. Assessment & Plan (08/15/2021 4:14 PM CHEF INSTRUCTOR): Will resume home meds, trazodone and Mirtazapine. Patient endorsed having suicidal idea for one day due to severe headache [facility] inpatient recommedned by primary oncology: consulted 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) 02/20/2016 Assessment & Plan (08/24/2024 8:52 AM CHEF INSTRUCTOR): Stable, on surveillance. Last scan August 2024 Assessment & Plan (05/13/2024 3:24 PM CHEF INSTRUCTOR): Stable, on surveillance Assessment & Plan (08/14/2021 7:31 PM CHEF INSTRUCTOR): S/P gamma knife radiosurgery in 2015, has had sever MRI with no new lesions. - Medical oncology consult Sleep apnea 03/04/2013 Malignant neoplasm of prostate 03/04/2013 Hypothyroidism 03/04/2013 Assessment & Plan (08/24/2024 8:56 AM CHEF INSTRUCTOR): Euthyroid. Continue levothyroxine. Recheck labs Assessment & Plan (05/13/2024 3:24 PM CHEF INSTRUCTOR): Euthyroid. Continue levothyroxine. Follow-up 3-4 months for physical Assessment & Plan (10/27/2023 10:21 AM CDT): Stable well controlled on current regimen, will send in refills as needed Assessment & Plan (01/14/2023 8:39 AM CDT): Stable well controlled on current regimen, will send in refills as needed Assessment & Plan (08/21/2021 8:24 PM CHEF INSTRUCTOR): - will check TSH Assessment & Plan (08/14/2021 7:30 PM CHEF INSTRUCTOR): Resumed home Synthroid 75 mcg. Attention deficit [...] 08/14/2021 Assessment & Plan (08/17/2021 10:43 AM CHEF INSTRUCTOR): Headache etiology is unclear. Goal of admission [...] 05/13/2024 Assessment & Plan (06/14/2021 8:46 AM CHEF INSTRUCTOR): There is a 1 to 2 mm [...] 11/24/201801/2024 Assessment & Plan (08/14/2021 7:33 PM CHEF INSTRUCTOR): CT chest in the ED showed stable [...]
--- OUTSIDE RECORDS SUMMARY | 2024-11-18 04:13 | XMS_ITS | Encounter Summary ---
Author Organization [facility] Address [address] [place] [address] Care Team Providers Care Shoe Polisher Name Role Phone Ricky Rodriguez MD Primary Care Provider Michelle Gutierrez RED HAT LINUX ADMINISTRATOR Unavailable Damaris Felix MD Unavailable [facility], Ed Orellana MD Primary Care P rovider Ricky Rodriguez MD Primary Care Provider Martha Winston MD Primary Care Provider [phone] Martha Winston MD Primary Care Provider [phone] Martha Winston MD Primary Care Provider [phone] Kamari Arora RED HAT LINUX ADMINISTRATOR Unavailable Katie Roach Unavailable [phone] Nishant Alanis MD Unavailable [phone] Joel Boo MD Primary Care Provider + Brandi Arevalo NP Primary Care Provider Shannan Munoz RED HAT LINUX ADMINISTRATOR Unavailable Encounter Details Date Type Department Care Team (Late st Contact Info) Description 03/15/2019 Telephone [facility] Advanced Medicine Radiation Oncology [address] [place] [address] Maci Mccormick RN Social History Tobacco Use Types Packs/Day Years Used Date Smoking Tobacco: Former Cigarettes Smokeless Tobacco: Never Alcohol Use Standard Drinks/Week Comments Yes 3 (1 standard drink = 0.6 oz pur e alcohol) Sex and Gender Information Value Date Recorded Sex Assigned at Not on file Legal Sex Male 12:11 PM CUT ORDER HAND Gender Identity Male 11/21/2022 6:52 PM CDT Sexual Orientation Not on file documented as of this encounter Plan of Treatment Scheduled Procedures Name Priority Associated Diagnoses Date/Ti co COLONOSCOPY Open Access Colon cancer screening COLONOSCOPY Epigastric pain ESOPHAGOGASTRODUODENOSCOPY History of abdominal pain documented as of this encounter Visit Diagnoses Not on filedocumented in this encounter Care Teams Shoe Polisher Relationship Specialty Start Date End Date Ricky Rodriguez MD PCP - General 08/19/16 08/15/19 [facility], Ed Orellana MD [address] [place] [address] PCP - General 08/16/19 02/07/20 Ricky Rodriguez MD [address] [facility] [address] [place] [address] PCP - General Internal Medicine 02/08/20 02/10/20 Martha Winston MD [address] [place], [place] [address] [place] [address] PCP - General Internal Medicine 04/20/20 06/18/20 Martha Winston MD [address] [place] [address] ADY G[address] [place] [address] PCP - General Internal Medicine 02/11/20 04/19/20 Martha Winston MD [address] [place], [place] [address] [place] [address] PCP - General Internal Medicine 06/19/20 11/03/22 Joel Boo MD [address] [place], [place] [address] [place] [address] PCP - General Internal Medicine 11/04/22 05/12/24 Brandi Arevalo NP [address] [place], [place] [address] [place] [address] PCP - General Family Medicine 05/13/24 Michelle Gutierrez, LETICIA Nurse Practitioner Radiation Oncology 12/23/17 Damaris Felix MD Referring Physician Medical Oncology 12/23/17 Kamari Arora NP [address] [place] [address] DR Rachel [address] [place] [address] Nurse Practitioner Neurosurgery 08/18/20 Katie Roach Au.D. [address] [address] Silk Screen Painter Audiology 08/18/20 Nishant Alanis MD [address] [facility] [address] [place] [address] Consulting Physician Otolaryngology 08/18/20 08/18/24 Shannan Munoz NP [address] [place] [address] [place] [address] Nurse Practitioner Nurse Practitioner 05/13/24 documented as of this encounter
--- OUTSIDE RECORDS SUMMARY | 2024-11-18 04:13 | XMS_ITS | Encounter Summary ---
Author Organization [facility] Address [address] [place] [address] Phone Care Team Providers Care Ammunition Storekeeper Name Role Phone Michelle Gutierrez SAFETY INVESTIGATOR Unavailable Damaris Felix MD Unavailable Kamari Arora NP Unavailable Katie Roach Unavailable [phone] Nishant Alanis MD Unavailable Joel Boo MD [...] on file Legal Sex Male 12:11 PM BENDING ROLL OPERATOR Gender Identity Male 11/21/2022 6:52 PM CDT [...] on filedocumented in this encounter Care Teams Ammunition Storekeeper Relationship Specialty Start Date End Date Joel Boo MD [address] [place] [address] [address] G[address] [place] [address] PCP - General Internal Medicine 11/04/22 05/12/24 Brandi Arevalo NP [address] [place] [address] [address] [place] [address] PCP - General Family Medicine 05/13/24 Michelle Gutierrez NP Nurse Practitioner Radiation Oncology 12/23/17 Damaris Felix MD Referring Physician Medical Oncology 12/23/17 Kamari Arora NP Nurse Practitioner Neurosurgery 08/18/20 Katie Roach Au.D. [address] [address] Finished Metal Repairer Audiology 08/18/20 Nishant Alanis MD [address] [address] Consulting Physician Otolaryngology 08/18/20 08/18/24 Shannan Munoz NP 1 [facility] [address] [place] [address] Nurse Practitioner Nurse Practitioner 05/13/24 documented as of this encounter
--- OUTSIDE RECORDS SUMMARY | 2024-11-18 04:13 | XMS_ITS | Encounter Summary ---
Author Organization [facility] Healthcare Address [address] [place] [address] Care Team Providers Care Brake Lining Finisher Asbestos Name Role Phone Michelle Gutierrez TALENT ACQUISITION SOURCER Unavailable Damaris Felix MD Unavailable Martha Winston MD Primary Care Provider [phone] Kamari Arora NP Unavailable Katie Roach Unavailable [phone] Nishant Alanis MD Unavailable Joel Boo MD Primary Care Provider + Brandi Arevalo NP Primary Care Provider [phone] Shannan Munoz NP Unavailable Encounter Details Date Type Department Care Team (Late st Contact Info) Description 12/26/2020 Telephone [facility] Radiology [address] [place] [address] Martha Winston MD [address] [facility] [address] Rachel GARCIA [address] [place] [id number] Social History Tobacco Use Types Packs/Day Years [...] on file Legal Sex Male 12:11 PM SUPERVISOR ADULT EDUCATION Gender Identity Male 11/21/2022 6:52 PM CDT Sexual Orientation Not on file documented as of this encounter Plan of Treatment Scheduled Procedures Name Priority Associated Diagnoses Date/Ti wi COLONOSCOPY Open Access Colon cancer screening COLONOSCOPY Epigastric pain ESOPHAGOGASTRODUODENOSCOPY History of abdominal pain documented as of this encounter Visit Diagnoses Not on filedocumented in this encounter Care Teams Brake Lining Finisher Asbestos Relationship Specialty Start Date End Date Martha [place] MD [address] [place], [place] [address]NIKKI GARC[address] [place] [address] PCP - General Internal Medicine 06/19/20 11/03/22 Joel Boo MD [address] [place], [place] [address]NI[address]I GARC[address] [place] [address] PCP - General Internal Medicine 11/04/22 05/12/24 Brandi Arevalo NP [address] [place], [place] [address] [place] [address] PCP - General Family Medicine 05/13/24 Michelle Gutierrez NP Nurse Practitioner Radiation Oncology 12/23/17 Damaris Felix MD Referring Physician Medical Oncology 12/23/17 Kamari Arora NP [facility] [facility] [address] Ramos [address] [place] [address] Nurse Practitioner Neurosurgery 08/18/20 Katie Roach Au.D. [address] [facility] [address] [place] [address] Formation Testing Operator Audiology 08/18/20 Nishant Alanis MD [address] [facility] [address] [place] [address] Consulting Physician Otolaryngology 08/18/20 08/18/24 Shannan Munoz NP [address] [facility] [address] [place] [address] Nurse Practitioner Nurse Practitioner 05/13/24 documented as of this encounter
--- OUTSIDE RECORDS SUMMARY | 2024-11-18 04:13 | XMS_ITS | Encounter Summary ---
Author Organization [facility] Healthcare Address [address] [place] [address] Care Team Providers Care Advertising Director Name Role Phone Michelle Gutierrez NP Unavailable Damaris Felix MD Unavailable Martha [place] MD Primary Care Provider [phone] Martha [place] MD Primary Care Provider [phone] Martha [place] MD Primary Care Provider [phone] Kamari Arora NP Unavailable Katie Roach Unavailable [phone] Nishant Alanis MD Unavailable Joel Boo MD Primary Care Provider + Brandi Arevalo NP Primary Care Provider [phone] Shannan Munoz NP Unavailable Encounter Details Date Type Department Care Team (Late st Contact Info) Description 02/16/2020 Telephone [facility] [address] [place] [address] Kamari Arora NP [address] [address] Social History Tobacco Use Types Packs/Day Years [...] on file Legal Sex Male 12:11 PM ENVIRONMENTAL CONSERVATION PROFESSOR Gender Identity Male 11/21/2022 6:52 PM CDT Sexual Orientation Not on file documented as of this encounter Plan of Treatment Scheduled Procedures Name Priority Associated Diagnoses Date/Ti me COLONOSCOPY Open Access Colon cancer screening COLONOSCOPY Epigastric pain ESOPHAGOGASTRODUODENOSCOPY History of abdominal pain documented as of this encounter Visit Diagnoses Not on filedocumented in this encounter Care Teams Advertising Director Relationship Specialty Start Date End Date Martha Winston MD [address] [place], [place] [address]A [address]IA [address] [place] [address] PCP - General Internal Medicine 04/20/20 06/18/20 Martha Winston MD [address] [place], [place] [address]A [address]IA [address] [place] [address] PCP - General Internal Medicine 02/11/20 04/19/20 Martha Winston MD [address] [place], [place] [address]A [address] [place] [address] PCP - General Internal Medicine 06/19/20 11/03/22 Joel Boo MD [address] [place], [place] [address] [place] [address] PCP - General Internal Medicine 11/04/22 05/12/24 Brandi Arevalo NP [facility] ANA [address] [place] [address] PCP - General Family Medicine 05/13/24 Michelle Gutierrez, LETICIA Nurse Practitioner Radiation Oncology 12/23/17 Damaris Felix MD Referring Physician Medical Oncology 12/23/17 Kamari Arora NP [address] [place] [address] [address] [place] [address] Nurse Practitioner Neurosurgery 08/18/20 Katie Roach Au.D. [address] [facility] [address] [place] [address] Manager Appointment Audiology 08/18/20 Nishant Alanis MD [address] [facility] [address] [place] [address] Consulting Physician Otolaryngology 08/18/20 08/18/24 Shannan Munoz NP 1 [facility] [address] [place] [address] Nurse Practitioner Nurse Practitioner 05/13/24 documented as of this encounter
--- OUTSIDE RECORDS SUMMARY | 2024-11-18 04:13 | XMS_ITS | Encounter Summary ---
Author Organization [facility] Address [address] [place] [address] Phone Care Team Providers Care Saw Runner Name Role Phone Michelle Gutierrez ROASTERMAN Unavailable Damaris Felix MD Unavailable Martha Winston MD Primary Care Provider [phone] Kamari Arora NP Unavailable Katie Roach Unavailable [phone] Nishant Alanis MD Unavailable Joel Boo MD Primary Care Provider + Brandi Arevalo NP Primary Care Provider Shannan Munoz NP Unavailable Encounter Details Date Type Department Care Team (Late st Contact Info) Description 08/15/2021 Ophth Exam [facility] Ophthalmology [address] [place] [address] 1[address] [place] [id number] María Trinh MD PhD [address] [place] [address] Social History Tobacco Use Types [...] on file Legal Sex Male 12:11 PM CHYRON OPERATOR Gender Identity Male 11/21/2022 6:52 PM [...] No fatigue with prolonged upgaze Care Teams Saw Runner Relationship Specialty Start Date End Date Martha Winston MD [address] [place] [address] [address] Rachel [address] [place] [address] PCP - General Internal Medicine 06/19/20 11/03/22 Joel Boo MD [address] [place], [place] [address]NIKKI GARC[address] [place] [address] PCP - General Internal Medicine 11/04/22 05/12/24 Brandi Arevalo NP [address] [place], [place] [address] [place] [address] PCP - General Family Medicine 05/13/24 Michelle Gutierrez, LETICIA Nurse Practitioner Radiation Oncology 12/23/17 Damaris Felix MD Referring Physician Medical Oncology 12/23/17 Kamari Arora NP [address] [place], [place] [address] [place] [address] Nurse Practitioner Neurosurgery 08/18/20 Katie Roach Au.D. [address] [address] Natural Resources Faculty Member Audiology 08/18/20 Nishant Alanis MD [address] [facility] [address] [place] [address] Consulting Physician Otolaryngology 08/18/20 08/18/24 Shannan Munoz NP 1 [facility] [address] [place] [address] Nurse Practitioner Nurse Practitioner 05/13/24 documented as of this encounter
[2024-11-18 04:20] LABS: NT Pro B Type Natriuretic Pept 167 pg/mL (19.9-100)
--- NOTE | 2024-11-18 06:34 | ECG_ITS ---
Test Date: 2024-11-18 06:39:31 Measurements Intervals [place] Rate: 55 P: 35 NV: 198 QRS: 17 QRSD: 100 T: 48 QT: 425 QTc: 408 Interpretive Statements SINUS BRADYCARDIA POSSIBLE LEFT ATRIAL ENLARGEMENT [-0.1mV P-WAVE IN V1/V2] Compared to ECG 11/18/2024 03:36:08 NO SIGNIFICANT CHANGE Electronically Signed On 11-18-2024 16:01:50 CDT by Skip Mays M.D.
[2024-11-18 07:15] LABS: Troponin I < 0.012 ng/mL (0.000-0.034)
== END 2024-11-18 07:38 | disposition home or self-care (01) ==
PROVIDERS: Emergency Medicine; Emergency Provider Emergency Medicine; PCP Nurse Practitioner Family
DX: F41.9 Anxiety disorder, unspecified (principal); R42 Dizziness and giddiness; C34.90 Malignant neoplasm of unspecified part of unspecified bronchus or lung; C79.31 Secondary malignant neoplasm of brain; Z79.899 Other long term (current) drug therapy
CPT/HCPCS: 36415; 70450; 71045; 71275; 80053; 83690; 83880; 84484; 85025; 85380; 85610; 85730; 93005; 96374; 99284; A9270; J3360; Q9967